=== PATIENT | male | born 1965 | race Caucasian/White ===

== ENCOUNTER 2016-09-05 21:17 | Emergency (ER) | payer MEDICAID ==
[2016-09-05] MEDS ORDERED: LORazepam 2 MG/ML MDV IVPUSH ONE (22:44)
[2016-09-05] MEDS ORDERED: HYDROmorphone 0.5 MG/0.5 ML Syringe IVPUSH ONE (22:44)
[2016-09-05] MEDS ORDERED: Sodium Chloride 0.9% 1,000 ML IV SCH (22:45)
[2016-09-05] MEDS ORDERED: Pantoprazole 40 MG Vial IVPUSH ONE (22:46)
--- NOTE | 2016-09-05 23:23 | EDM.PDOC ---
ED HPI GENERAL MEDICAL PROBLEM - General Chief Complaint: Gastrointestinal Problem Stated Complaint: RECTAL BLEEDING Time Seen by Provider: 09/05/16 22:12 Source of Information: Reports: Patient History Limitations: Reports: No limitations - History of Present Illness INITIAL COMMENTS - FREE TEXT/NARRATIVE: Rectal bleeding; this is a 51-year-old male presents emergency room with concerns or rectal bleeding. He reports at 7 PM this evening he notices pants felt wet, he noted approximately half to one cup of bradyarrhythmia and blood in his pants. He became concerned came to emergency room for evaluation. He reports has had a painful rectal area for the past one and half to 2 weeks has been taking Tylenol #4 for pain control but noticed over the past 24 hours worsening pain and then this episode of rectal bleeding. Past medical history Crohn since 1984 currently taking Imuran. Also multiple abdominal surgeries including a appendix, colonoscopy, colon resection of the small and large bowel, colostomy with revision. Mr. 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 4) Rectal Pain Score (Numeric/FACES): 8 - Related Data Allergies Allergy/AdvReac Type Severity Reaction Status Date / Time morphine Allergy Itching Verified 09/05/16 21:31 Sulfa (Sulfonamide Allergy Vomiting Verified 09/05/16 21:31 Antibiotics) surgical tape Allergy Other Uncoded 09/05/16 21:31 Home Meds: Home Meds Acetaminophen with Codeine [Tylenol with Codeine #3 Tablet] 60 - 325 mg PO Q4HR PRN 10/04/13 [History] Albuterol Sulfate [Proair Hfa] 8.5 gm IH DAILY PRN 06/11/15 [History] traZODone 20 mg PO BEDTIME 06/11/15 [History] Acetaminophen [Tylenol Extra Strength] 2 tab-cap PO ASDIRECTED PRN 06/14/15 [ History] azaTHIOprine [Azathioprine] 50 mg PO DAILY 06/14/15 [History] Citalopram [Celexa] 20 mg PO BEDTIME 09/05/16 [History] Past Medical History HEENT History: Reports: Impaired vision Respiratory History: Reports: Asthma Gastrointestinal History: Reports: Other (see below) Other Gastrointestinal History: chrones Genitourinary History: Reports: Other (see below) Other Genitourinary History: seeing a urologist for urethrostricture Musculoskeletal History: Reports: Arthritis Neurological History: Reports: Brain injury Other Neuro History: 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 bowel surgery Male Surgical History: Reports: None Musculoskeletal Surgical History: Reports: None Dermatological Surgical History: Reports: None Social & Family History - Family History Family Medical History: Noncontributory Respiratory: Reports: Asthma, COPD GI: Reports: None Endocrine/Metabolic: Reports: Diabetes, type II - Tobacco Use Smoking Status *Q: Current Every Day Smoker Years of Tobacco use: 30 Packs/Tins Daily: 1 Used Tobacco, but Quit: No Month Tobacco Last Used: 11 Second Hand Smoke Exposure: Yes - Caffeine Use Caffeine Use: Reports: Coffee, Soda - Alcohol Use Days Per Week of Alcohol Use: 0 - Recreational Drug Use Recreational Drug Use: No - Living Situation & Occupation Living situation: Reports: (Lives in [facility] with , roommate, and dog.) ED ROS GENERAL - Review of Systems Review Of Systems: See Below Constitutional: Reports: other (Abdomen and perineum pain) HEENT: Reports: No symptoms Respiratory: Reports: No Symptoms, Other (Smokes one pack per day not interested in quitting) Cardiovascular: Reports: No symptoms Endocrine: Reports: no symptoms GI/Abdominal: Reports: Abdominal pain, Bloody stool, Stool incontinence, Other ( Reports has 9 stools daily due to Crohn's disease) : Reports: no symptoms Musculoskeletal: Reports: joint swelling, muscle pain Skin: Reports: no symptoms Neurological: Reports: No Symptoms Psychiatric: Reports: No symptoms Hematologic/Lymphatic: Reports: no symptoms Immunologic: Reports: no symptoms ED EXAM, GENERAL - Physical Exam Exam: See Below Exam Limited By: No limitations General Appearance: alert, anxious Ears: normal external exam Nose: normal inspection Head: atraumatic, normocephalic Neck: normal inspection, supple, non-tender, full range of motion Respiratory/Chest: no respiratory distress, lungs clear, normal breath sounds, no accessory muscle use, chest non-tender Cardiovascular: normal peripheral pulses, regular rate, rhythm, no edema, no murmur GI/Abdominal: distended, other (Tenderness noted) (Male) Exam: Other (No Hemorrhoids, difficult to examine due to to severe pain, rectum; pink blood is noted ) Rectal (Males) Exam: Bloody Stool, Heme + stool, Tenderness, Other (Difficult to do digital-rectal exam secondary to extreme pain) Back Exam: normal inspection, full range of motion Extremities: normal inspection, normal range of motion, non-tender Neurological: alert, normal cognition, no motor/sensory deficits Psychiatric: normal affect, normal mood, anxious Skin Exam: Warm, Dry, Intact, Normal color, No rash Lymphatic: no adenopathy Course - Vital Signs Last Recorded V/S: Last Vital Signs Temp 37.7 C 09/05/16 21:28 Pulse 98 09/05/16 21:28 Resp 16 09/05/16 21:28 BP 129/84 09/05/16 21:28 Pulse Ox 97 09/05/16 21:28 - Orders/Labs/Meds Orders: Active Orders 24 hr Category Date Time Status Sodium Chloride 0.9% [Normal Saline] 1,000 ml Med 09/05/16 22:45 Active IV ASDIRECTED Medication Orders Sodium Chloride (Normal Saline) 1,000 mls @ 150 mls/hr IV ASDIRECTED PATTI Last Admin: 09/05/16 23:35 Dose: 150 mls/hr Labs: Laboratory Tests 09/05/16 09/05/16 Range/Units 22:23 22:23 WBC 11.7 H (4.5-11.0) K/uL RBC 4.91 (4.30-5.90) M/uL Hgb 15.1 H (12.0-15.0) g/dL Hct 45.9 (40.0-54.0) % MCV 94 (80-98) fL MCH 31 (27-31) pg MCHC 33 (32-36) % Plt Count 289 (150-400) K/uL Neut % (Auto) 63 (36-66) % Lymph % (Auto) 23 L (24-44) % [place] % (Auto) 13 H (2-6) % Eos % (Auto) 1 L (2-4) % Baso % (Auto) 0 (0-1) % Sodium 146 (140-148) mmol/L Potassium 3.4 L (3.6-5.2) mmol/L Chloride 105 (100-108) mmol/L Carbon Dioxide 31 (21-32) mmol/L Anion Gap 13.4 (5.0-14.0) mmol/L BUN 9 (7-18) mg/dL Creatinine 1.1 (0.8-1.3) mg/dL Est Cr Clr Drug Dosing 79.45 mL/min Estimated GFR (MDRD) > 60 (>60) Glucose 126 H (74-106) mg/dL Calcium 8.3 L (8.5-10.1) mg/dL Meds: Medications Generic Name Dose Route Start Last Admin Trade Name Freq PRN Reason Stop Dose Admin Sodium Chloride 1,000 mls @ 150 mls/hr 09/05/16 22:45 09/05/16 23:35 Normal Saline IV 150 mls/hr ASDIRECTED PATTI Administration Discontinued Medications Generic Name Dose Route Start Last Admin Trade Name Freq PRN Reason Stop Dose Admin Hydromorphone HCl 0.5 mg 09/05/16 22:44 Dilaudid IVPUSH 09/05/16 22:45 ONETIME ONE Lorazepam 1 mg 09/05/16 22:44 09/05/16 23:35 Ativan IVPUSH 09/05/16 22:45 1 mg ONETIME ONE Administration Pantoprazole Sodium 40 mg 09/05/16 22:46 Protonix Iv IVPUSH 09/05/16 22:47 ONETIME ONE - Re-Assessments/Exams Free Text/Narrative Re-Assessment/Exam: 09/05/16 23:31 IV fluids normal saline, IV Dilaudid 0.5, IV Ativan 1 mg, IV protonic 40 mg Labs, hemoglobin stable at 15.1, cbc, cmp, fecal occult stool + Consulted with [facility] , patient is a , will be transferred and admitted to [facility] for further care and treatment. Patient and his are agreeable to plan of care. accepting Departure - Departure Time of Disposition: 23:39 Disposition: DC/Tfer to [facility] 43 Condition: good Clinical Impression: Rectal hemorrhage due to Crohn's disease, Exacerbation of Crohn's disease Referrals: Christiano Vale MD [Primary Care Provider] - Forms: ED Department Discharge Care Plan Goals: Transfer to [facility] for further care and treatment - Problem List & Annotations (1) Exacerbation of Crohn's disease SNOMED Code(s): 30311552 Code(s): K50.90 - CROHN'S DISEASE, UNSPECIFIED, WITHOUT COMPLICATIONS Status: Acute Priority: High Current Visit: Yes Qualifiers: Digestive disease complication type: with rectal bleeding Qualified Code(s) : K50.911 - Crohn's disease, unspecified, with rectal bleeding (2) Rectal hemorrhage due to Crohn's disease SNOMED Code(s): 4226708804359349 Code(s): K50.911 - CROHN'S DISEASE, UNSPECIFIED, WITH RECTAL BLEEDING Status: Acute Priority: High Current Visit: Yes - Problem List Review Problem List Initiated/Reviewed/Updated: Yes - My Orders Last 24 Hours: My Active Orders 09/05/16 22:45 Sodium Chloride 0.9% [Normal Saline] 1,000 ml IV ASDIRECTED - Assessment/Plan Last 24 Hours: My Active Orders 09/05/16 22:45 Sodium Chloride 0.9% [Normal Saline] 1,000 ml IV ASDIRECTED Plan: Transfer to [facility] for further care and treatment
[2016-09-05 23:52] VITALS: BP 153/93
== END 2016-09-06 00:12 ==
LOC: JP.ED 21:17
DX: K50.911 Crohn's disease, unspecified, with rectal bleeding (principal); F17.210 Nicotine dependence, cigarettes, uncomplicated; J45.909 Unspecified asthma, uncomplicated; Z90.89 Acquired absence of other organs; Z79.899 Other long term (current) drug therapy; Z88.2 Allergy status to sulfonamides; Z88.5 Allergy status to narcotic agent; Z91.048 Other nonmedicinal substance allergy status
CPT/HCPCS: 36415; 80048; 82270; 85025; 96374; 96375; 99285; C9113; J1170; J2060; J7040

== ENCOUNTER 2017-09-12 22:33 | Emergency (ER) | payer MEDICAID ==
[2017-09-12 22:52] VITALS: BP 140/98
--- NOTE | 2017-09-12 23:32 | EDM.PDOC ---
ED HPI GENERAL MEDICAL PROBLEM - General Chief Complaint: Lower Extremity Injury/Pain Stated Complaint: POSS BLOOD CLOTS Time Seen by Provider: 09/12/17 23:10 Source of Information: Reports: Patient History Limitations: Reports: No Limitations - History of Present Illness INITIAL COMMENTS - FREE TEXT/NARRATIVE: 52-year-old male who has had 2 erythematous areas on the left leg develop over the past week. The first is over the anterior quiñones which has been there for 5 days, now he has a second spot on the inner aspect of the upper left thigh. The one on the quiñones is enlarging and becoming warm. He has no fevers or chills. They are tender to palpation. Onset: Gradual (Over the past 7 days) Severity: Mild Associated Symptoms: Denies: Fever/Chills, Loss of Appetite, Malaise, Nausea/ Vomiting, Shortness of Breath Left Lower Leg Pain Score (Numeric/FACES): 4 - Related Data Allergies Allergy/AdvReac Type Severity Reaction Status Date / Time morphine Allergy Itching Verified 09/05/16 21:31 Sulfa (Sulfonamide Allergy Vomiting Verified 09/05/16 21:31 Antibiotics) surgical tape Allergy Other Uncoded 09/05/16 21:31 Home Meds: Home Meds Acetaminophen with Codeine [Tylenol with Codeine #3 Tablet] 60 - 325 mg PO Q4HR PRN 10/04/13 [History] Albuterol Sulfate [Proair Hfa] 8.5 gm IH DAILY PRN 06/11/15 [History] traZODone 20 mg PO BEDTIME PRN 06/11/15 [History] Acetaminophen [Tylenol Extra Strength] 2 tab-cap PO ASDIRECTED PRN 06/14/15 [ History] azaTHIOprine [Azathioprine] 50 mg PO DAILY 06/14/15 [History] Citalopram [Celexa] 40 mg PO BEDTIME 09/05/16 [History] Diphenoxylate HCl/Atropine [Lomotil Tablet] 1 each PO BID 09/12/17 [History] InFLIXimab [Remicade] 100 mg IV ASDIRECTED 09/12/17 [History] Past Medical History HEENT History: Reports: Impaired Vision Respiratory History: Reports: Asthma Gastrointestinal History: Reports: Other (See Below) Other Gastrointestinal History: Crohns disease Genitourinary History: Reports: Other (See Below) Other Genitourinary History: erectile dysfunction Musculoskeletal History: Reports: Arthritis Neurological History: Reports: Brain Injury Other Neuro History: 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, according to patient Psychiatric History: Reports: Anxiety Dermatologic History: Reports: Eczema - Infectious Disease History Infectious Disease History: Reports: Hepatitis A Other Infectious Disease History: hepatitis a as a child - Past Surgical History Respiratory Surgical History: Reports: None GI Surgical History: Reports: Colon, Colonoscopy, Hernia Repair/Other, Other ( See Below) Other GI Surgeries/Procedures: Ileocecal resection Musculoskeletal Surgical History: Reports: None Dermatological Surgical History: Reports: None Social & Family History - Family History Family Medical History: Noncontributory Respiratory: Reports: Asthma, COPD GI: Reports: None Endocrine/Metabolic: Reports: Diabetes, type II - Tobacco Use Smoking Status *Q: Current Every Day Smoker Years of Tobacco use: 30 Packs/Tins Daily: 0.5 Used Tobacco, but Quit: No Month/Year Tobacco Last Used: 11 Second Hand Smoke Exposure: Yes - Caffeine Use Caffeine Use: Reports: Coffee, Energy Drinks, Soda - Alcohol Use Days Per Week of Alcohol Use: 0 - Recreational Drug Use Recreational Drug Use: No - Living Situation & Occupation Living situation: Reports: Review of Systems - Review of Systems Review Of Systems: See Below Constitutional: Denies: Fever Respiratory: Denies: Shortness of Breath Cardiovascular: Denies: Chest Pain GI/Abdominal: Reports: Other (Some stool incontinence chronically from his Crohn 's disease) Musculoskeletal: Reports: Other (Having problems with leg cramps for the last several months) Skin: Reports: Rash, Erythema ED EXAM, GENERAL - Physical Exam Exam: See Below Exam Limited By: No Limitations General Appearance: Alert, No Apparent Distress Respiratory/Chest: No Respiratory Distress Extremities: Other (Patient has an isolated erythematous area on the anterior aspect of the left lower leg with surrounding erythema and warmth, also a small 3-4 cm wide area of erythema on the inner aspect of the left thigh) Course - Vital Signs Last Recorded V/S: Last Vital Signs Temp 97.8 F 09/12/17 23:06 Pulse 90 09/12/17 23:06 Resp 16 09/12/17 23:06 BP 140/98 H 09/12/17 23:06 Pulse Ox 98 09/12/17 23:06 - Orders/Labs/Meds Meds: Medications Discontinued Medications Generic Name Dose Route Start Last Admin Trade Name Tania PRN Reason Stop Dose Admin Cephalexin 500 mg 09/12/17 23:45 09/12/17 23:48 Keflex PO 09/12/17 23:46 500 mg ONETIME ONE Administration - Re-Assessments/Exams Free Text/Narrative Re-Assessment/Exam: 09/12/17 23:30 This may be a combination of phlebitis and cellulitis, DVT is very unlikely. He' ll be placed on cephalexin 500 3 times a day for 7 days, warm compresses can be used and he can recheck at any time if he is worsening. Departure - Departure Time of Disposition: 23:42 Disposition: Home, Self-Care 01 Condition: Good Clinical Impression: Superficial thrombophlebitis of left leg Cellulitis Qualifiers: Site of cellulitis: extremity Site of cellulitis of extremity: lower extremity Laterality: left Qualified Code(s): L03.116 - Cellulitis of left lower limb - Discharge Information Instructions: Phlebitis, [id number] Referrals: Christiano Vale MD [Primary Care Provider] - Forms: ED Department Discharge Care Plan Goals: Take antibiotic 3 times a day until gone, warm compresses and elevation of the leg may help. Take aspirin or naproxen for inflammation and recheck in the next 2-3 days if not improving satisfactorily.
[2017-09-12] MEDS ORDERED: Cephalexin 250 MG Cap PO ONE (23:45)
== END 2017-09-12 23:48 | disposition home or self-care (01) ==
LOC: JP.ED 22:33
DX: I80.02 Phlebitis and thrombophlebitis of superficial vessels of left lower extremity (principal); L03.116 Cellulitis of left lower limb; J45.909 Unspecified asthma, uncomplicated; F41.9 Anxiety disorder, unspecified; F17.210 Nicotine dependence, cigarettes, uncomplicated; Z88.5 Allergy status to narcotic agent; Z88.2 Allergy status to sulfonamides; Z91.048 Other nonmedicinal substance allergy status; Z79.899 Other long term (current) drug therapy
CPT/HCPCS: 99283; A9270

== ENCOUNTER 2019-02-06 09:38 | Inpatient (IN) | payer MEDICAID ==
[2019-02-06] MEDS ORDERED: Acetaminophen 500 MG Tab PO ONE (10:30)
[2019-02-06] MEDS ORDERED: Dextrose 5%-Lactated Ringers 1,000 ML IV SCH (10:30)
[2019-02-06] MEDS ORDERED: Scopolamine 1.5 MG Transdermal Patch TOP SCH (10:30)
[2019-02-06] MEDS ORDERED: Celecoxib 200 MG Cap PO ONE (10:30)
[2019-02-06] MEDS ORDERED: Albuterol/Ipratropium 3.0-0.5 MG/3 ML Neb Soln NEB ONE ×2 (10:45→14:58)
[2019-02-06] MEDS ORDERED: ceFAZolin 2 GM in Premix Bag 1 BAG IV ONE (10:45)
[2019-02-06] MEDS ORDERED: Glycopyrrolate 0.2 MG/ML 5 ML MDV ONE (11:50)
[2019-02-06] MEDS ORDERED: Dexamethasone 4 MG/ML SDV ONE (11:50)
[2019-02-06] MEDS ORDERED: Ondansetron 4 MG/2 ML SDV ONE (11:50)
[2019-02-06] MEDS ORDERED: Succinylcholine 200 MG/10 ML MDV ONE (11:50)
[2019-02-06] MEDS ORDERED: fentaNYL 250 MCG/5 ML SDV ONE ×2 (11:50→12:59)
[2019-02-06] MEDS ORDERED: Neostigmine Methylsulfate 1 MG/ML 5 ML Syringe ONE (11:50)
[2019-02-06] MEDS ORDERED: Propofol 200 MG/20 ML SDV ONE (11:50)
[2019-02-06] MEDS ORDERED: Ketamine 500 MG/5 ML MDV IV SCH (12:00)
[2019-02-06] MEDS ORDERED: Ketamine 50 MG in Sodium Chloride 0.9% 49.5 ML IV SCH (12:00)
[2019-02-06] MEDS ORDERED: Meropenem 500 MG SDV ONE (12:19)
[2019-02-06] MEDS ORDERED: Rocuronium 50 MG/5 ML Vial ONE (12:50)
[2019-02-06] MEDS ORDERED: Naloxone 0.4 MG/ML SDV IVPUSH PRN (13:06)
[2019-02-06] MEDS: HYDROmorphone/Normal Saline 15 MG/30 ML PCA IV PRN (13:30)
[2019-02-06] MEDS ORDERED: Lactated Ringers 1,000 ML ONE (13:42)
[2019-02-06] MEDS ORDERED: hydrOXYzine HCl 100 MG/2 ML SDV IM ONE (14:56)
[2019-02-06] MEDS ORDERED: Naloxone 0.4 MG/ML SDV IV PRN (16:04)
[2019-02-06] MEDS ORDERED: hydrOXYzine HCl 100 MG/2 ML SDV IM PRN (16:06)
[2019-02-06] MEDS ORDERED: Ondansetron 4 MG/2 ML SDV IVPUSH PRN (16:06)
[2019-02-06] MEDS ORDERED: Metoclopramide 10 MG/2 ML SDV IVPUSH PRN (16:06)
[2019-02-06] MEDS: Acetaminophen 500 MG Tab PO SCH ×2 (18:14→22:32)
[2019-02-06] MEDS: Pantoprazole 40 MG Vial IVPUSH SCH (18:14)
[2019-02-06] MEDS: Dextrose 5%-Lactated Ringers 1,000 ML IV SCH (18:51)
[2019-02-06] MEDS: ceFAZolin 2 GM in Sodium Chloride 0.9% 50 ML IV SCH (19:32)
[2019-02-06] MEDS: Tamsulosin 0.4 MG Cap.ER PO SCH (20:56)
[2019-02-06] MEDS ORDERED: busPIRone 10 MG Tab PO SCH (21:00)
[2019-02-06] MEDS: Albuterol/Ipratropium 3.0-0.5 MG/3 ML Neb Soln INH SCH (21:06)
[2019-02-07] MEDS: Lactated Ringers 500 ML IV SCH ×2 (00:20→03:10)
[2019-02-07] MEDS: Dextrose 5%-Lactated Ringers 1,000 ML IV SCH ×2 (02:07→16:57)
[2019-02-07] MEDS ORDERED: Lactated Ringers 500 ML IV SCH (03:10)
[2019-02-07] MEDS: ceFAZolin 2 GM in Sodium Chloride 0.9% 50 ML IV SCH ×3 (04:27→19:55)
[2019-02-07] MEDS: Acetaminophen 500 MG Tab PO SCH ×4 (04:28→22:00)
[2019-02-07] MEDS: Albuterol/Ipratropium 3.0-0.5 MG/3 ML Neb Soln INH SCH ×4 (07:15→20:08)
[2019-02-07] MEDS: busPIRone 10 MG Tab PO SCH (08:15)
[2019-02-07] MEDS: Celecoxib 200 MG Cap PO SCH (08:15)
[2019-02-07] MEDS ORDERED: Citalopram 20 MG Tab PO SCH (09:00)
[2019-02-07] MEDS: SCOPOLAMINE PATCH CHECK TOP SCH (09:23)
[2019-02-07] MEDS ORDERED: Dextrose 5%-Lactated Ringers 1,000 ML IV SCH ×2 (09:30→20:00)
[2019-02-07] MEDS: Bisacodyl 5 MG Tab PO SCH ×2 (09:31→20:04)
[2019-02-07] MEDS ORDERED: Furosemide 20 MG/2 ML VIAL IVPUSH ONE (13:13)
[2019-02-07] MEDS ORDERED: Albuterol 0.083% 2.5 MG/3 ML Neb Soln NEB ONE (13:13)
[2019-02-07] MEDS: HYDROmorphone/Normal Saline 15 MG/30 ML PCA IV PRN (14:58)
[2019-02-07] MEDS: Pantoprazole 40 MG Vial IVPUSH SCH (17:01)
[2019-02-07] MEDS: Albuterol/Ipratropium 3.0-0.5 MG/3 ML Neb Soln INH PRN (17:09)
--- NOTE | 2019-02-07 17:54 | PN ---
DATE OF SERVICE: 02/07/2019 SUBJECTIVE: Ramón is postoperative day #1. Vital signs have been stable. His urinary output has been decreased. He received 2 boluses and sips of water since surgery. His urine output was 515. He states his pain is controlled. He has been resting comfortably in bed. REVIEW OF SYSTEMS: Remainder of review of systems negative for any pertinent positives and negatives. OBJECTIVE: GENERAL: Ramón Erazo is a 53-year-old male, in no acute distress. VITAL SIGNS: TPR 98.7, 71, 16, blood pressure 98/67. HEENT: Negative. NECK: Supple. HEART: Regular rate and rhythm. LUNGS: Clear. ABDOMEN: Dressings dry and intact. Abdominal binder is on. EXTREMITIES: Without peripheral edema. ASSESSMENT: Exploratory laparotomy with lysis of adhesions. 1. Repair of incarcerated recurrent incisional hernia with mesh. 2. Repair of incarcerated umbilical hernia with mesh. 3. Excision of peritoneal nodule. 4. Placement of Interceed mesh for recurrent incarcerated incisional umbilical hernia and peritoneal nodule between right lateral abdominal wall and omentum (5.5 cm), and extensive intraabdominal adhesions. Date of surgery 02/06/2019. Surgeon, Denver Gabriel MD. PLAN: 1. Leave Carmichael catheter in for accurate intake and output. 2. Asked regarding removal of the Carmichael catheter pending urinary output. 3. IV decreased to 175 mL/hour until 1999, then decrease to 125 mL. 4. Dulcolax tabs 2 b.i.d. until bowel movement. 5. Senna Plus 2 tabs p.o. at bedtime. 6. Good pulmonary toilet. 7. We will evaluate p.r.n. or in a.m. Dee Conway PA-C /[id number]
[2019-02-07] MEDS: Tamsulosin 0.4 MG Cap.ER PO SCH (20:04)
[2019-02-07] MEDS: Citalopram 20 MG Tab PO SCH (20:05)
[2019-02-08] MEDS: Dextrose 5%-Lactated Ringers 1,000 ML IV SCH (01:30)
[2019-02-08] MEDS: ceFAZolin 2 GM in Sodium Chloride 0.9% 50 ML IV SCH ×2 (04:22→11:13)
[2019-02-08] MEDS: Albuterol/Ipratropium 3.0-0.5 MG/3 ML Neb Soln INH PRN (04:22)
[2019-02-08] MEDS: Acetaminophen 500 MG Tab PO SCH ×3 (04:22→17:14)
[2019-02-08] MEDS: Albuterol/Ipratropium 3.0-0.5 MG/3 ML Neb Soln INH SCH ×4 (07:18→20:14)
[2019-02-08] MEDS: busPIRone 10 MG Tab PO SCH (10:00)
[2019-02-08] MEDS ORDERED: Dextrose 5%-Lactated Ringers 1,000 ML IV SCH (10:00)
[2019-02-08] MEDS: Celecoxib 200 MG Cap PO SCH (10:00)
[2019-02-08] MEDS: Bisacodyl 5 MG Tab PO SCH ×2 (10:00→20:14)
[2019-02-08] MEDS: SCOPOLAMINE PATCH CHECK TOP SCH (10:01)
--- NOTE | 2019-02-08 13:22 | PN ---
DATE OF SERVICE: 02/08/2019 The patient has been afebrile with stable vital signs. Did have some bloody drainage from the incision, but it otherwise looks clean at this point. We will have him shower daily, replacing the Aquacel dressing. Otherwise, urine output is now satisfactory. Back down IV rate. Carmichael catheter will be coming out. continue bowel stimulation. Otherwise, maximize activity. Work with pulmonary toilet. Denver Gabriel MD /[id number]
[2019-02-08] MEDS: Pantoprazole 40 MG Vial IVPUSH SCH (17:14)
[2019-02-08] MEDS ORDERED: Furosemide 40 MG/4 ML VIAL IVPUSH ONE (17:44)
[2019-02-08] MEDS ORDERED: Sodium Chloride 0.9% 1,000 ML IV SCH (18:00)
[2019-02-08] MEDS: Acetaminophen/oxyCODONE 325-5 MG Tab PO PRN (20:14)
[2019-02-08] MEDS: Cyclobenzaprine 10 MG Tab PO PRN (20:14)
[2019-02-08] MEDS: Tamsulosin 0.4 MG Cap.ER PO SCH (20:15)
[2019-02-08] MEDS: Citalopram 20 MG Tab PO SCH (20:15)
[2019-02-09] MEDS: Acetaminophen/oxyCODONE 325-5 MG Tab PO PRN ×4 (01:24→19:15)
[2019-02-09] MEDS: Cyclobenzaprine 10 MG Tab PO PRN ×2 (04:37→19:16)
[2019-02-09] MEDS: Albuterol/Ipratropium 3.0-0.5 MG/3 ML Neb Soln INH SCH ×6 (07:18→21:41)
[2019-02-09] MEDS: Bisacodyl 5 MG Tab PO SCH (08:43)
[2019-02-09] MEDS: busPIRone 10 MG Tab PO SCH (08:43)
[2019-02-09] MEDS: Celecoxib 200 MG Cap PO SCH (08:43)
--- NOTE | 2019-02-09 13:05 | PN ---
DATE OF SERVICE: 02/09/2019 The patient has been afebrile with stable vital signs, still having some mobility issues, and we will work on that one more day prior to discharge. Otherwise, he will switch over to oral pain medication and is moving his bowels. We are going to move him to a regular diet today. Denver Gabriel MD /[id number]
[2019-02-09] MEDS: Tamsulosin 0.4 MG Cap.ER PO SCH (20:55)
[2019-02-09] MEDS: Citalopram 20 MG Tab PO SCH (20:55)
[2019-02-10] MEDS ORDERED: Ondansetron 4 MG Tab.DIS PO PRN (02:02)
[2019-02-10] MEDS: Acetaminophen/oxyCODONE 325-5 MG Tab PO PRN (02:21)
[2019-02-10] MEDS: Albuterol/Ipratropium 3.0-0.5 MG/3 ML Neb Soln INH SCH (06:59)
[2019-02-10] MEDS: Celecoxib 200 MG Cap PO SCH (07:15)
[2019-02-10 07:23] VITALS: BP 122/78; PULSE 71
[2019-02-10] MEDS: busPIRone 10 MG Tab PO SCH (11:15)
--- NOTE | 2019-02-10 12:39 | DISCH ---
ADMISSION DIAGNOSES: Recurrent incisional hernia, Crohn disease, chronic pain syndrome, morbid obesity, essential hypertension, chronic knee pain, tobacco dependence, and dyslipidemia. DISCHARGE DIAGNOSES: Exploratory laparotomy with lysis of adhesions. 1. Repair of incarcerated recurrent incisional hernia with mesh. 2. Repair of incarcerated umbilical hernia with mesh. 3. Excision of peritoneal nodule. 4. Placement of Interceed mesh for recurrent incarcerated incisional umbilical hernia and peritoneal nodule between right lateral abdominal wall and omentum (5.5 cm), and extensive intraabdominal adhesions. Date of surgery 02/06/2019. Surgeon, Denver Gabriel MD. HISTORY: Ramón Erazo is a 53-year-old male with an incarcerated recurrent incisional hernia. After preoperative evaluation and discussion of possible risks and possible complications, he wished to proceed with surgical procedure. HOSPITAL COURSE: Ramón had his surgery on 02/06/2019. He had no operative complications. On postoperative day 1, his Carimchael was left in for decreased urine output secondary to dehydration. He was started on bowel stimulation. On postoperative day 2, vital signs remained stable. He did have some bloody drainage from his incision. Carmichael catheter was discontinued. On postoperative day 3, he needed encouragement to ambulate, he was switched over to oral pain medication, and on postoperative day 4, he was able to be discharged to home. Pain was well managed, activity had improved, and vital signs were stable. PHYSICAL EXAMINATION: GENERAL: Ramón Erazo is a 53-year-old male. VITAL SIGNS: Height is 5 feet 8.9 inches, weight is 263 pounds. TPR is 97.7, 71, 16. Blood pressure 122/78. HEENT: Negative. NECK: Supple. HEART: Regular rate and rhythm. LUNGS: Clear. ABDOMEN: Dressings dry and intact. Aquacel will be removed and abdominal binder is on. EXTREMITIES: Without peripheral edema. DISPOSITION: Discharged to home. CONDITION: Stable and improving. FOLLOWUP: Followup appointment with Dee Conway PA-C, on 02/18/2019 at 9:30 a.m. HOME MEDICATIONS: 1. Percocet 5/325 mg take 1 tab every 6 hours, #42. 2. Zofran ODT 4 mg every 4 hours p.r.n. nausea, #30. He is to continue takin. ProAir 2 puffs every 4 hours p.r.n. shortness of breath. 2. Celexa 20 mg at bedtime. 3. Lomotil 1 oral twice daily for constipation. 4. Lamisil 1% cream 1 applicator twice daily. 5. Triamcinolone cream 1 applicator p.r.n. rash. 6. BuSpar 10 mg oral daily. DIET: Usual diet as tolerated. Drink 8 to 10 glasses of water a day. ACTIVITY: As tolerated. No lifting greater than 10 pounds for 6 weeks. DRIVING: Do not drive for 1 week and while on pain medication. SHOWER/BATHING: May shower. DISCHARGE INSTRUCTIONS: Notify provider if any fever, increased pain, nausea, vomiting. Keep site clean and dry, wear abdominal binder for 6 weeks, and use incentive spirometer 10 times every hour while awake.
--- NOTE | 2019-02-12 13:52 | OR ---
DATE OF PROCEDURE: 02/06/2019 SURGEON: Denver Gabriel MD PREOPERATIVE DIAGNOSIS: Recurrent incisional hernia. POSTOPERATIVE DIAGNOSES: 1. Recurrent incarcerated incisional hernia. 2. Incarcerated umbilical hernia. 3. Peritoneal nodule located between the right lateral abdominal wall and omentum (5.5 cm). 4. Extensive intraabdominal adhesions. OPERATIVE PROCEDURES: Exploratory laparotomy with lysis of extensive adhesions: 1. Repair of incarcerated recurrent incisional hernia with mesh (39252, [id number]). 2. Repair of incarcerated umbilical hernia with mesh (15683). 3. Excision of peritoneal nodule located between omentum and right lateral abdominal wall (31992). 4. Placement of Interceed mesh x2 to limit recurrent adhesion formation between pelvic and abdominal wall and underlying viscera (37146). ANESTHESIA: General. RESOLUTION REP: Dee Conway PA-C. INDICATIONS FOR PROCEDURE: A 53-year-old presenting with recurrent incisional hernia, which appears to be increasingly symptomatic and progressively enlarging. After preoperative evaluation and discussion, he wished to proceed with repair of this. Because of extensive previous abdominal surgeries, an open approach is obviously indicated. Potential risks of procedure including bleeding, infection, injury to underlying viscera, problems with mesh becoming infected, hernias recurring, as well as remote possibility of cardiopulmonary, septic, or hemorrhagic complications leading to were all discussed, and the patient wishes to proceed. DETAILS OF PROCEDURE: The patient was taken to the operating room and placed in a supine position. After general endotracheal anesthesia was induced, a Carmichael catheter was inserted, and the abdomen prepped and draped. Previous portion of the midline skin incision was then removed and the incision continued down through the full-thickness abdominal wall. Eventually, the patient was entered into the peritoneal cavity layer. There were quite dense adhesions between the transverse colon, small bowel, omentum, and the incisional hernia sac. These were gradually dissected free. The patient noted to have a separate umbilical hernia, which likewise had some incarcerated omentum within it, which was also then excised away from the hernia sac and placed back in the abdomen. During the course of dissection, a firm nodular lesion was located between the omentum and the right lateral abdominal wall. This was excised for histologic confirmation and measured 5.5 cm in maximal dimension. Once the abdominal wall was cleared sufficiently to allow the mesh placement, a Ventralight ST mesh was selected. This measured 19 x 24 in terms of its dimensions with an oval configuration. At roughly 5 cm intervals around its circumference on the polypropylene side, 2-0 Vicryl sutures were placed. Stab wounds were placed in the abdominal wall where the sutures would be pulled up and mesh soaked in antibiotic-containing saline solution. Mesh was then placed into the peritoneal cavity on its upper half, where the sutures had been pulled up and through the abdominal wall, lifting the remaining portion of the mesh. Two Interceed meshes were placed between the pelvic and abdominal wall and the pelvic wall and the area of the hernia formation. The remaining sutures were then pulled up, affixing the mesh in place. The mesh was then further affixed with titanium tacking screws to its underlying shelf and the anterior abdominal wall. At this point, no further problems noted. The midline fascia was approximated with #2 Vicryl stitch, and the subcutaneous tissue approximated with 2 layers of 3-0 and 4-0 Vicryl stitch deep and dusty for the skin. Dressing was applied. The patient was taken to the recovery room in satisfactory condition. There were no evident complications. Physician assistant plant control operator, Dee Conway, played an essential role in assisting in this case, helping to position the patient, retract structures as needed, as well as suturing and cutting sutures when indicated. Her presence improved patient safety and decreased the operative time. Denver Gabriel MD /[id number]
== END 2019-02-10 09:10 | disposition home or self-care (01) | DRG 337 ==
LOC: JP.SDS 09:38 → JP.MS 09:38 → EDSTATUS 13:00 → JP.MS 14:00
PROVIDERS: ADMIT Surgery; ATTEND Surgery
PROC: 0WUF0JZ Supplement Abdominal Wall with Synthetic Substitute, Open Approach (ICD-10-PCS; principal; 2019-02-06)
PROC: 0DNU0ZZ Release Omentum, Open Approach (ICD-10-PCS; 2019-02-06)
PROC: 0DNL0ZZ Release Transverse Colon, Open Approach (ICD-10-PCS; 2019-02-06)
PROC: 0DN80ZZ Release Small Intestine, Open Approach (ICD-10-PCS; 2019-02-06)
PROC: 0DBW0ZZ Excision of Peritoneum, Open Approach (ICD-10-PCS; 2019-02-06)
PROC: 3E0M05Z Introduction of Adhesion Barrier into Peritoneal Cavity, Open Approach (ICD-10-PCS; 2019-02-06)
DX: K42.0 Umbilical hernia with obstruction, without gangrene (principal); K43.0 Incisional hernia with obstruction, without gangrene; K66.0 Peritoneal adhesions (postprocedural) (postinfection); E86.0 Dehydration; I10 Essential (primary) hypertension; M25.562 Pain in left knee; E66.01 Morbid (severe) obesity due to excess calories; E78.5 Hyperlipidemia, unspecified; K66.8 Other specified disorders of peritoneum; M25.511 Pain in right shoulder; G47.00 Insomnia, unspecified; G89.4 Chronic pain syndrome; F17.210 Nicotine dependence, cigarettes, uncomplicated; Z79.899 Other long term (current) drug therapy; Z88.2 Allergy status to sulfonamides; Z91.09 Other allergy status, other than to drugs and biological substances; Z88.5 Allergy status to narcotic agent; Z71.6 Tobacco abuse counseling; Z68.39 Body mass index [BMI] 39.0-39.9, adult
CPT/HCPCS: 88302; 88304; 94640; 94762; A9270-GY; C1713; C1781; C9113; J0171; J0330; J0690; J1100; J1170; J1940; J2020; J2185; J2405; J2704; J2710; J2795; J3010; J3410; J3490; J7042; J7050; J7120; J7620-GY

== ENCOUNTER 2020-02-07 12:56 | Emergency (ER) | payer MEDICAID ==
[2020-02-07 13:26] VITALS: BP 141/87; PULSE 94
--- NOTE | 2020-02-07 14:14 | EDM.PDOC ---
ED HPI GENERAL MEDICAL PROBLEM - General Chief Complaint: Lower Extremity Injury/Pain Stated Complaint: LT FOOT INFECTED Time Seen by Provider: 02/07/20 13:40 Source of Information: Reports: Patient History Limitations: Reports: No Limitations - History of Present Illness INITIAL COMMENTS - FREE TEXT/NARRATIVE: 54-year-old male in with a variety of complaints, the main one is pain on the bottom of his left foot. He had a foreign body poke into his foot several weeks ago, since that time has had increasing inflammation and pain, thickening of the skin, and pain with weightbearing. He is also been getting a lot of intermittent muscle cramps, and worsening right shoulder pain from a spur. No fevers or chills, no shortness of breath. Onset: Gradual (The foot pain is been gradually worsening over the past 2 weeks) Location: Reports: Upper Extremity, Left Associated Symptoms: Denies: Chest Pain, Cough, Shortness of Breath Left Foot Pain Score (Numeric/FACES): 8 - Related Data Allergies Allergy/AdvReac Type Severity Reaction Status Date / Time morphine Allergy Itching Verified 02/07/20 13:36 Sulfa (Sulfonamide Allergy Vomiting Verified 02/07/20 13:36 Antibiotics) surgical tape Allergy Other Uncoded 02/07/20 13:36 Home Meds: Home Meds Albuterol Sulfate [Proair Hfa] 2 puff IH DAILY PRN 06/11/15 [History] Diphenoxylate HCl/Atropine [Lomotil] 1 each PO BID 09/12/17 [History] Citalopram Hydrobromide [Celexa] 20 mg PO BEDTIME 02/04/19 [History] Terbinafine [LamISIL AT 1% Crm] 1 applic TOP BID 02/04/19 [History] Triamcinolone Acetonide [Kenalog 0.1% Crm] 1 applic TOP ASDIRECTED PRN 02/04/19 [History] busPIRone [Buspar] 10 mg PO DAILY 02/04/19 [History] Ondansetron [Zofran ODT] 4 mg PO Q4H PRN #30 tab.dis 02/10/19 [Rx] Past Medical History HEENT History: Reports: Impaired Vision Respiratory History: Reports: Asthma Gastrointestinal History: Reports: Hemorrhoids, Other (See Below) Other Gastrointestinal History: Crohns disease Genitourinary History: Reports: Other (See Below) Other Genitourinary History: erectile dysfunction Musculoskeletal History: Reports: Arthritis, Other (See Below) Other Musculoskeletal History: chronic pain syndrome, knee pain and injuries. 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, according to patient Psychiatric History: Reports: Anxiety, Depression Endocrine/Metabolic History: Reports: Obesity/BMI 30+ Dermatologic History: Reports: Eczema - Infectious Disease History Infectious Disease History: Reports: Extended Spectrum Beta-Lactamase (ESBL) Other Infectious Disease History: hepatitis a as a child - Past Surgical History Head Surgeries/Procedures: Reports: None HEENT Surgical History: Reports: Adenoidectomy, Tonsillectomy Respiratory Surgical History: Reports: None GI Surgical History: Reports: Appendectomy, Colon, Colonoscopy, EGD, Hernia, Abdominal, Hernia Repair/Other, Small Bowel, Other (See Below) Other GI Surgeries/Procedures: Ileocecal resection,. mesh removal (total of 4 surgeries beginning with an abscess in the mesh). Male Surgical History: Reports: Cystectomy Neurological Surgical History: Reports: None Musculoskeletal Surgical History: Reports: Shoulder Surgery Social & Family History - Family History Family Medical History: Noncontributory Respiratory: Reports: Asthma, COPD GI: Reports: None Endocrine/Metabolic: Reports: Diabetes, type II - Tobacco Use Smoking Status *Q: Current Every Day Smoker Years of Tobacco use: 40 Packs/Tins Daily: 0.5 - Caffeine Use Caffeine Use: Reports: Coffee, Energy Drinks, Soda - Recreational Drug Use Recreational Drug Use: No - Living Situation & Occupation Living situation: Reports: Review of Systems - Review of Systems Review Of Systems: See Below Constitutional: Denies: Fever Respiratory: Denies: Shortness of Breath Cardiovascular: Denies: Chest Pain Musculoskeletal: Reports: Other (Significant right shoulder pain, especially with abduction and rotation) Skin: Reports: Other (Painful redness and thickening of the skin underneath the distal aspect of the left sole at the base of the fourth toe) ED EXAM, GENERAL - Physical Exam Exam: See Below Exam Limited By: No Limitations General Appearance: Alert, No Apparent Distress Head: Atraumatic Respiratory/Chest: Lungs Clear Extremities: Other (Tender inflamed area on the sole of the left foot laterally under the fourth toe, some callus formation and erythema. Also tender over the anterior aspect of the right shoulder pain with abduction) Course - Vital Signs Last Recorded V/S: Last Vital Signs Temp 98.6 F 02/07/20 13:32 Pulse 94 02/07/20 13:32 Resp 18 02/07/20 13:32 BP 141/87 H 02/07/20 13:32 Pulse Ox 99 02/07/20 13:32 - Re-Assessments/Exams Free Text/Narrative Re-Assessment/Exam: 02/07/20 14:12 Patient will be placed on a course of cephalexin, but was encouraged to use a pumice stone or blade to slowly shave off the hardened area of the callus on his foot. He was given 6 hydrocodone for intermittent shoulder pain when he is trying to rest, and will recheck with podiatry and orthopedics if not improving satisfactorily. Departure - Departure Time of Disposition: 14:27 Disposition: Home, Self-Care 01 Clinical Impression: Cellulitis of left foot Right shoulder pain Qualifiers: Chronicity: chronic Qualified Code(s): M25.511 - Pain in right shoulder - Discharge Information Instructions: Cellulitis, Adult, [id number] Referrals: PCP,None [Primary Care Provider] - Forms: ED Department Discharge Care Plan Goals: Take antibiotic as prescribed, try to reduce the thickness of the reactive callus on your foot with a pumice stone or blade and increase activity as tolerated. Use pain medicines sparingly for shoulder pain and increase activity as tolerated. Recheck at the clinic if not improving satisfactorily. Sepsis Event Note (ED) - Evaluation Sepsis Screening Result: No Definite Risk - Focused Exam Vital Signs: Vital Signs Temp Pulse Resp BP Pulse Ox 02/07/20 13:32 98.6 F 94 18 141/87 H 99 02/07/20 13:25 98.6 F 94 18 141/87 H 99
== END 2020-02-07 14:20 | disposition home or self-care (01) ==
LOC: JP.ED 12:56
DX: L03.116 Cellulitis of left lower limb (principal); M25.511 Pain in right shoulder; J45.909 Unspecified asthma, uncomplicated; E66.9 Obesity, unspecified; F41.9 Anxiety disorder, unspecified; F32.9 Major depressive disorder, single episode, unspecified; F17.210 Nicotine dependence, cigarettes, uncomplicated; Z88.5 Allergy status to narcotic agent; Z88.2 Allergy status to sulfonamides; Z91.09 Other allergy status, other than to drugs and biological substances; Z90.49 Acquired absence of other specified parts of digestive tract; Z79.899 Other long term (current) drug therapy
CPT/HCPCS: 99283

== ENCOUNTER 2020-08-06 16:40 | Emergency (ER) | payer MEDICAID, OTHER ==
[2020-08-06 17:01] VITALS: BP 145/88; PULSE 77
[2020-08-06] MEDS ORDERED: Acetaminophen 325 MG Tab PO PRN (17:25)
[2020-08-06] MEDS ORDERED: Ketorolac 60 MG/2 ML SDV IM ONE (17:25)
[2020-08-06] MEDS ORDERED: Albuterol/Ipratropium 4 GM Inhalation Spray INH STA (17:26)
--- NOTE | 2020-08-06 17:28 | EDM.PDOC ---
ED HPI GENERAL MEDICAL PROBLEM - General Chief Complaint: Respiratory Problem Stated Complaint: COVID SYMPTOMS Time Seen by Provider: 08/06/20 17:17 Source of Information: Reports: Patient, RN Notes Reviewed History Limitations: Reports: No Limitations - History of Present Illness INITIAL COMMENTS - FREE TEXT/NARRATIVE: 55-year-old gentleman presents emergency department day complaint of cough no sputum production states he been feeling short of breath wheezing body aches has been getting worse over the last couple days he is not sure of any positive exposures to Covid. 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 and there is a potential for exposure, no fever Generalized Pain Score (Numeric/FACES): 7 - Related Data Allergies Allergy/AdvReac Type Severity Reaction Status Date / Time morphine Allergy Itching Verified 02/07/20 13:36 Sulfa (Sulfonamide Allergy Vomiting Verified 02/07/20 13:36 Antibiotics) surgical tape Allergy Other Uncoded 02/07/20 13:36 Home Meds: Home Meds Albuterol Sulfate [Proair Hfa] 2 puff IH DAILY PRN 06/11/15 [History] Diphenoxylate HCl/Atropine [Lomotil] 1 each PO BID 09/12/17 [History] Citalopram Hydrobromide [Celexa] 20 mg PO BEDTIME 02/04/19 [History] Terbinafine [LamISIL AT 1% Crm] 1 applic TOP BID 02/04/19 [History] Triamcinolone Acetonide [Kenalog 0.1% Crm] 1 applic TOP ASDIRECTED PRN 02/04/19 [History] busPIRone [Buspar] 10 mg PO DAILY 02/04/19 [History] Acetaminophen [Tylenol] 500 mg PO QID PRN 08/06/20 [History] Albuterol/Ipratropium [DuoNeb 3.0-0.5 MG/3 ML] 3 ml INH QID 08/06/20 [History] Aspirin 81 mg PO DAILY 08/06/20 [History] Naproxen 500 mg PO TID PRN 08/06/20 [History] Ranitidine [Zantac] 75 mg PO DAILY 08/06/20 [History] Past Medical History HEENT History: Reports: Impaired Vision Respiratory History: Reports: Asthma Gastrointestinal History: Reports: Hemorrhoids, Other (See Below) Other Gastrointestinal History: Crohns disease Genitourinary History: Reports: Other (See Below) Other Genitourinary History: erectile dysfunction Musculoskeletal History: Reports: Arthritis, Other (See Below) Other Musculoskeletal History: chronic pain syndrome, knee pain and injuries. 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, according to patient Psychiatric History: Reports: Anxiety, Depression Endocrine/Metabolic History: Reports: Obesity/BMI 30+ Dermatologic History: Reports: Eczema - Infectious Disease History Infectious Disease History: Reports: Extended Spectrum Beta-Lactamase (ESBL) Other Infectious Disease History: hepatitis a as a child - Past Surgical History Head Surgeries/Procedures: Reports: None HEENT Surgical History: Reports: Adenoidectomy, Tonsillectomy Respiratory Surgical History: Reports: None GI Surgical History: Reports: Appendectomy, Colon, Colonoscopy, EGD, Hernia, Abdominal, Hernia Repair/Other, Small Bowel, Other (See Below) Other GI Surgeries/Procedures: Ileocecal resection,. mesh removal (total of 4 surgeries beginning with an abscess in the mesh). Male Surgical History: Reports: Cystectomy Endocrine Surgical History: Reports: None Neurological Surgical History: Reports: None Musculoskeletal Surgical History: Reports: Shoulder Surgery Dermatological Surgical History: Reports: None Social & Family History - Family History Family Medical History: No Pertinent Family History Respiratory: Reports: Asthma, COPD GI: Reports: None Endocrine/Metabolic: Reports: Diabetes, type II - Tobacco Use Tobacco Use Status *Q: Current Every Day Tobacco User Years of Tobacco use: 40 Packs/Tins Daily: 0.5 - Caffeine Use Caffeine Use: Reports: Coffee, Soda, Tea - Recreational Drug Use Recreational Drug Use: No - Living Situation & Occupation Living situation: Reports: ED ROS GENERAL - Review of Systems Review Of Systems: See Below Constitutional: Reports: Fatigue. Denies: Fever HEENT: Reports: No Symptoms Respiratory: Reports: Shortness of Breath, Wheezing, Cough. Denies: Sputum Cardiovascular: Reports: Dyspnea on Exertion GI/Abdominal: Reports: No Symptoms Musculoskeletal: Reports: Muscle Pain Skin: Reports: No Symptoms ED EXAM, GENERAL - Physical Exam Exam: See Below Exam Limited By: No Limitations General Appearance: Alert, WD/WN, No Apparent Distress Neck: Normal Inspection, Supple, Non-Tender, Full Range of Motion Respiratory/Chest: No Respiratory Distress, No Accessory Muscle Use, Chest Non- Tender, Wheezing Cardiovascular: Regular Rate, Rhythm, No Murmur GI/Abdominal: Soft, Non-Tender Back Exam: Normal Inspection, Full Range of Motion. No: CVA Tenderness (R), CVA Tenderness (L) Extremities: No Pedal Edema Course - Vital Signs Last Recorded V/S: Last Vital Signs Temp 97.6 F 08/06/20 17:00 Pulse 77 08/06/20 17:00 Resp 18 08/06/20 17:00 BP 145/88 H 08/06/20 17:00 Pulse Ox 95 08/06/20 17:00 - Orders/Labs/Meds Orders: Active Orders 24 hr Category Date Time Status RT Post Treatment Assessment [RC] Click to Edit Care 08/06/20 17:26 Active Chest 1V Frontal [CR] Stat Exams 08/06/20 17:25 Taken Acetaminophen [TylenoL] Med 08/06/20 17:25 Active 650 mg PO Q4H PRN Isolation [COMM] Stat Oth 08/06/20 17:25 Ordered Medication Orders Acetaminophen (Acetaminophen 325 Mg Tab) 650 mg PO Q4H PRN PRN Reason: Fever Greater Than 101 Labs: Laboratory Tests 08/06/20 08/06/20 08/06/20 Range/Units 17:26 17:45 17:45 WBC 15.1 H (4.5-11.0) K/uL RBC 5.17 (4.30-5.90) M/uL Hgb 15.9 H D (12.0-15.0) g/dL Hct 49.4 (40.0-54.0) % MCV 96 (80-98) fL MCH 31 (27-31) pg MCHC 32 (32-36) % Plt Count 256 (150-400) K/uL Neut % (Auto) 76 H (36-66) % Lymph % (Auto) 14 L (24-44) % [place] % (Auto) 9 H (2-6) % Eos % (Auto) 1 L (2-4) % Baso % (Auto) 0 (0-1) % Sodium 140 (140-148) mmol/L Potassium 4.3 (3.6-5.2) mmol/L Chloride 100 (100-108) mmol/L Carbon Dioxide 30 (21-32) mmol/L Anion Gap 9.7 (5.0-14.0) mmol/L BUN 8 (7-18) mg/dL Creatinine 1.5 H (0.8-1.3) mg/dL Est Cr Clr Drug Dosing 55.64 mL/min Estimated GFR (MDRD) 49 L (>60) Glucose 117 H (74-106) mg/dL Lactic Acid (0.4-2.0) mmol/L Calcium 9.2 (8.5-10.1) mg/dL Total Bilirubin 1.0 D (0.2-1.0) mg/dL Direct Bilirubin 0.31 H (0.0-0.2) mg/dL Indirect Bilirubin 0.69 AST 25 (15-37) U/L ALT 45 (12-78) U/L Alkaline Phosphatase 87 (46-116) U/L C-Reactive Protein 3.77 H (0.0-0.3) mg/dL Total Protein 7.2 (6.4-8.2) g/dL Albumin 3.7 (3.4-5.0) g/dL Globulin 3.5 (2.3-3.5) g/dL Albumin/Globulin Ratio 1.1 L (1.2-2.2) Procalcitonin ng/mL Influenza Type A RNA Negative (NEGATIVE) RSV RNA (INAAT) Negative (NEGATIVE) Influenza Type B RNA Negative (NEGATIVE) SARS-CoV-2 RNA (BRIJESH) Negative (NEGATIVE) 08/06/20 08/06/20 Range/Units 17:45 17:45 WBC (4.5-11.0) K/uL RBC (4.30-5.90) M/uL Hgb (12.0-15.0) g/dL Hct (40.0-54.0) % MCV (80-98) fL MCH (27-31) pg MCHC (32-36) % Plt Count (150-400) K/uL Neut % (Auto) (36-66) % Lymph % (Auto) (24-44) % [place] % (Auto) (2-6) % Eos % (Auto) (2-4) % Baso % (Auto) (0-1) % Sodium (140-148) mmol/L Potassium (3.6-5.2) mmol/L Chloride (100-108) mmol/L Carbon Dioxide (21-32) mmol/L Anion Gap (5.0-14.0) mmol/L BUN (7-18) mg/dL Creatinine (0.8-1.3) mg/dL Est Cr Clr Drug Dosing mL/min Estimated GFR (MDRD) (>60) Glucose (74-106) mg/dL Lactic Acid 1.9 (0.4-2.0) mmol/L Calcium (8.5-10.1) mg/dL Total Bilirubin (0.2-1.0) mg/dL Direct Bilirubin (0.0-0.2) mg/dL Indirect Bilirubin AST (15-37) U/L ALT (12-78) U/L Alkaline Phosphatase (46-116) U/L C-Reactive Protein (0.0-0.3) mg/dL Total Protein (6.4-8.2) g/dL Albumin (3.4-5.0) g/dL Globulin (2.3-3.5) g/dL Albumin/Globulin Ratio (1.2-2.2) Procalcitonin 0.07 ng/mL Influenza Type A RNA (NEGATIVE) RSV RNA (INAAT) (NEGATIVE) Influenza Type B RNA (NEGATIVE) SARS-CoV-2 RNA (BRIJESH) (NEGATIVE) Meds: Medications Generic Name Dose Route Start Last Admin Trade Name Freq PRN Reason Stop Dose Admin Acetaminophen 650 mg 08/06/20 17:25 Acetaminophen 325 Mg Tab PO Q4H PRN Fever Greater Than 101 Discontinued Medications Generic Name Dose Route Start Last Admin Trade Name Freq PRN Reason Stop Dose Admin Albuterol/Ipratropium 2 gm 08/06/20 17:26 08/06/20 17:46 Albuterol/Ipratropium 4 Gm Inhalation Freedom INH 08/06/20 17:27 2 gm NOW STA Administration Ketorolac Tromethamine 60 mg 08/06/20 17:25 08/06/20 17:44 Ketorolac 60 Mg/2 Ml Sdv IM 08/06/20 17:26 60 mg ONETIME ONE Administration Departure - Departure Time of Disposition: 18:59 Disposition: Home, Self-Care 01 Condition: Fair Clinical Impression: Acute bronchiolitis Qualifiers: Bronchiolitis organism: unspecified organism Qualified Code(s): J21.9 - Acute bronchiolitis, unspecified - Discharge Information Instructions: Upper Respiratory Infection, Adult, [id number] Referrals: PCP,None [Primary Care Provider] - Forms: ED Department Discharge Additional Instructions: Take full course of antibiotics, continue to use your inhaler as needed for shortness of breath, use anti-inflammatory such as Motrin or Tylenol as needed for body aches please followup with your primary care provider in 3-5 days if not better, please call return to the emergency department with worsening of symptoms., Sepsis Event Note (ED) - Evaluation Sepsis Screening Result: No Definite Risk - Focused Exam Vital Signs: Vital Signs Temp Pulse Resp BP Pulse Ox 08/06/20 17:00 97.6 F 77 18 145/88 H 95 - My Orders Last 24 Hours: My Active Orders 08/06/20 17:25 Chest 1V Frontal [CR] Stat Acetaminophen [TylenoL] 650 mg PO Q4H PRN Isolation [COMM] Stat 08/06/20 17:26 RT Post Treatment Assessment [RC] Click to Edit - Assessment/Plan Last 24 Hours: My Active Orders 08/06/20 17:25 Chest 1V Frontal [CR] Stat Acetaminophen [TylenoL] 650 mg PO Q4H PRN Isolation [COMM] Stat 08/06/20 17:26 RT Post Treatment Assessment [RC] Click to Edit Plan: Assessment Acuity = acute Site and laterality = bronchitis complicating gentleman history of tobacco use and dependence Etiology = suspicious for bacterial cause Manifestations = dyspnea Location of injury = Home Lab values = WBC elevated 15.1 consistent with leukocytosis, creatinine elevated 1.5 consistent with chronic renal failure stage G3 B CRP elevated 3.77 procalcitonin was 0.07 Covid was negative chest x-ray I did review films myself I cannot appreciate any acute process, the official read from radiology is pending Plan Elected to treat empirically doxycycline 100 mg p.o. twice daily x7 days anti- inflammatories for the body aches follow-up primary care 3 to 5 days if not better This note was dictated using [employer] voice recognition software please call with any questions on syntax or grammar.
[2020-08-06 18:53] LABS: CORONAVIRUS COVID-19 NAA NEGATIVE (NEGATIVE)
--- NOTE | 2020-08-09 09:30 | CR ---
CHEST: Portable 08/06/2020 at 6:15 PM CLINICAL HISTORY:Respiratory failure COMPARISON:2014 FINDINGS: Heart is mildly enlarged. Bony vascularity is normal. There is some mild generalized interstitial prominence. This may be exaggerated by patient's body habitus. There are atherosclerotic changes in the aorta. IMPRESSION: Mild cardiomegaly Mild generalized interstitial prominence may be chronic If clinical symptomatology persists or worsens repeat examination recommended
== END 2020-08-06 19:14 | disposition home or self-care (01) ==
LOC: JP.ED 16:40
DX: J21.9 Acute bronchiolitis, unspecified (principal); J45.909 Unspecified asthma, uncomplicated; M19.90 Unspecified osteoarthritis, unspecified site; E66.9 Obesity, unspecified; Z68.42 Body mass index [BMI] 45.0-49.9, adult; Z88.5 Allergy status to narcotic agent; Z91.048 Other nonmedicinal substance allergy status; Z79.82 Long term (current) use of aspirin; Z88.2 Allergy status to sulfonamides; Z72.0 Tobacco use; Z20.822 Contact with and (suspected) exposure to COVID-19; Z79.899 Other long term (current) drug therapy
CPT/HCPCS: 0241U; 36415; 71045; 71045-26; 80048; 80076; 83605; 84145; 85025; 86140; 94640; 96372; 99284; 99285-25; A9270-GY; J1885

== ENCOUNTER 2020-08-21 15:10 | Emergency (ER) | payer MEDICAID, OTHER ==
[2020-08-21 15:33] VITALS: BP 141/87; PULSE 87
[2020-08-21] MEDS ORDERED: Sodium Chloride 0.9% 10 ML Syringe FLUSH PRN (16:27)
[2020-08-21] MEDS ORDERED: Albuterol/Ipratropium 3.0-0.5 MG/3 ML Neb Soln NEB ONE (16:29)
--- NOTE | 2020-08-21 17:06 | EDM.PDOC ---
ED HPI GENERAL MEDICAL PROBLEM - General Chief Complaint: Respiratory Problem Stated Complaint: RESPIRATORY INFECTION Time Seen by Provider: 08/21/20 16:04 Source of Information: Reports: Patient History Limitations: Reports: No Limitations - History of Present Illness INITIAL COMMENTS - FREE TEXT/NARRATIVE: Patient presents to the ER today due to continued SOB/difficulty breathing; he states he just can't seem to catch his breath. He states he was seen a couple weeks ago in the ER by Dr Officer, treated with doxycycline x 10 days & albuterol inhaler. He reports testing negative at that time for COVID. He states he took several days off work and thought he was starting to feel better, went back to work approx 1 week ago this past Sunday--noted some increased fatigue/tired but that slowly improved. Then on he states he started having increasing cough/shortness of breath again. States he has been unable to sleep well, can't lay down flat or back in his recliner due to sensation getting worse. He states he has to sit-upright/lean forward. Denies any other associated symptoms of concern PMH--chron's dz, COPD, obesity, chronic pain syndrome, HTN; ? depression or anxiety based on medication list Meds--albuterol inhaler, duonebuliser, ASA, citalopram, buspar, tylenol, naproxen, zantac, lomotil Allergies--morphine, sulfa, fentanyl PCM--[facility] Tob--decreasing, now <1/2 ppd EtOH--occassional Drugs--denies He has not recieved the COVID vaccine and does not report having had COVID infection Onset: Other (ongoing issue that seemed to improve but then he states got worse again) - Related Data Allergies Allergy/AdvReac Type Severity Reaction Status Date / Time morphine Allergy Itching Verified 02/07/20 13:36 Sulfa (Sulfonamide Allergy Vomiting Verified 02/07/20 13:36 Antibiotics) surgical tape Allergy Other Uncoded 02/07/20 13:36 Home Meds: Home Meds Albuterol Sulfate [Proair Hfa] 2 puff IH DAILY PRN 06/11/15 [History] Diphenoxylate HCl/Atropine [Lomotil] 1 each PO BID 09/12/17 [History] Citalopram Hydrobromide [Celexa] 20 mg PO BEDTIME 02/04/19 [History] Terbinafine [LamISIL AT 1% Crm] 1 applic TOP BID 02/04/19 [History] Triamcinolone Acetonide [Kenalog 0.1% Crm] 1 applic TOP ASDIRECTED PRN 02/04/19 [History] busPIRone [Buspar] 10 mg PO DAILY 02/04/19 [History] Acetaminophen [Tylenol] 500 mg PO QID PRN 08/06/20 [History] Albuterol/Ipratropium [DuoNeb 3.0-0.5 MG/3 ML] 3 ml INH QID 08/06/20 [History] Aspirin 81 mg PO DAILY 08/06/20 [History] Naproxen 500 mg PO TID PRN 08/06/20 [History] Ranitidine [Zantac] 75 mg PO DAILY 08/06/20 [History] Past Medical History HEENT History: Reports: Impaired Vision Respiratory History: Reports: Asthma Gastrointestinal History: Reports: Hemorrhoids, Other (See Below) Other Gastrointestinal History: Crohns disease Genitourinary History: Reports: Other (See Below) Other Genitourinary History: erectile dysfunction Musculoskeletal History: Reports: Arthritis, Other (See Below) Other Musculoskeletal History: chronic pain syndrome, knee pain and injuries. 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, according to patient Psychiatric History: Reports: Anxiety, Depression Endocrine/Metabolic History: Reports: Obesity/BMI 30+ Dermatologic History: Reports: Eczema - Infectious Disease History Infectious Disease History: Reports: Extended Spectrum Beta-Lactamase (ESBL) Other Infectious Disease History: hepatitis a as a child - Past Surgical History Head Surgeries/Procedures: Reports: None HEENT Surgical History: Reports: Adenoidectomy, Tonsillectomy Respiratory Surgical History: Reports: None GI Surgical History: Reports: Appendectomy, Colon, Colonoscopy, EGD, Hernia, Abdominal, Hernia Repair/Other, Small Bowel, Other (See Below) Other GI Surgeries/Procedures: Ileocecal resection,. mesh removal (total of 4 surgeries beginning with an abscess in the mesh). Male Surgical History: Reports: Cystectomy Endocrine Surgical History: Reports: None Neurological Surgical History: Reports: None Musculoskeletal Surgical History: Reports: Shoulder Surgery Dermatological Surgical History: Reports: None Social & Family History - Family History Family Medical History: No Pertinent Family History Respiratory: Reports: Asthma, COPD GI: Reports: None Endocrine/Metabolic: Reports: Diabetes, type II - Tobacco Use Tobacco Use Status *Q: Current Every Day Tobacco User Years of Tobacco use: 30 Packs/Tins Daily: 0.5 - Caffeine Use Caffeine Use: Reports: Coffee, Soda - Recreational Drug Use Recreational Drug Use: No - Living Situation & Occupation Living situation: Reports: ED ROS GENERAL - Review of Systems Review Of Systems: See Below Constitutional: Reports: No Symptoms HEENT: Reports: No Symptoms Respiratory: Reports: Shortness of Breath, Cough Cardiovascular: Reports: No Symptoms Endocrine: Reports: No Symptoms GI/Abdominal: Reports: No Symptoms : Reports: No Symptoms Musculoskeletal: Reports: No Symptoms Skin: Reports: No Symptoms Neurological: Reports: No Symptoms Psychiatric: Reports: No Symptoms Hematologic/Lymphatic: Reports: No Symptoms Immunologic: Reports: No Symptoms ED EXAM, GENERAL - Physical Exam Exam: See Below Exam Limited By: No Limitations General Appearance: Alert, WD/WN, No Apparent Distress Eye Exam: Bilateral Eye: EOMI, Normal Inspection, PERRL Ears: Normal External Exam Nose: Normal Inspection Throat/Mouth: Normal Inspection, Normal Oropharynx, Normal Voice, No Airway Compromise Head: Atraumatic, Normocephalic Neck: Normal Inspection, Supple, Non-Tender, Full Range of Motion Respiratory/Chest: No Respiratory Distress, No Accessory Muscle Use, Other (has noted coughing episodes with deep breathing with some end expiratory wheezing) Cardiovascular: Regular Rate, Rhythm, No Murmur. No: No Edema (2+ pitting edema of lower extremities bilaterally) Peripheral Pulses: 2+: Radial (L), Radial (R) GI/Abdominal: Normal Bowel Sounds, Soft, Non-Tender (morbid obesity/abdomial obesity limits palpatory exam) (Male) Exam: Deferred Rectal (Males) Exam: Deferred Back Exam: Normal Inspection, Full Range of Motion Extremities: Non-Tender, Normal Capillary Refill, Redness (noted to have bilateral erythema, likely r/t circulation limitations from obesity/edema), Other (2+ pitting edema of lower extremities bilaterally). No: No Pedal Edema Neurological: Alert, Oriented, Normal Cognition, No Motor/Sensory Deficits Psychiatric: Normal Affect, Normal Mood Skin Exam: Warm, Dry, Intact, Erythema (noted to have bilateral erythema, likely r/t circulation limitations from obesity/edema) #1 Interpretation EKG Date: 08/21/20 Time: 17:06 (read @ 1709) Rhythm: NSR (low voltage precordial leads (likely body habitus related), abnormal R-wave progression/late transition) Rate (Beats/Min): 77 [place]: Normal P-Wave: Present (HI-143) QRS: Normal (QRS-103) ST-T: Normal QT: Normal (QT/QTc-392/444) Course - Vital Signs Text/Narrative:: 1725--labs/rad/ekg have returned except for COVID testing; WBC improved from 06 August (WBC-15.1, neut%-76-->9.7, 65%), creat-1.4 at baseline; trop<0.017 & BNP- 35 both negative. EKG unremarkable for acute concern. Recommend continued duonebulizer use, will give solumedrol/oral steroids for home and recommend PCM/clinic follow up if continued symptoms of concern in the next 2-3 days. d/w patient and spouse at bedside. will d/c once all labs completed Last Recorded V/S: Last Vital Signs Temp 97.4 F 08/21/20 15:24 Pulse 87 08/21/20 15:24 Resp 20 08/21/20 15:24 BP 141/87 H 08/21/20 15:24 Pulse Ox 94 L 08/21/20 15:24 - Orders/Labs/Meds Orders: Active Orders 24 hr Category Date Time Status EKG Documentation Completion [RC] ASDIRECTED Care 08/21/20 16:28 Active Peripheral IV Care [RC] . DIRECTED Care 08/21/20 16:28 Active Pulse Oximetry [RC] CONTINUOUS Care 08/21/20 16:27 Active Chest 1V Frontal [CR] Urgent Exams 08/21/20 16:27 Taken Sodium Chloride 0.9% [Saline Flush] Med 08/21/20 16:27 Active 10 ml FLUSH ASDIRECTED PRN ED Respiratory Adult Reflex [OM.PC] Click to Edit Oth 08/21/20 16:27 Ordered Peripheral IV Insertion Adult [OM.PC] Urgent Oth 08/21/20 16:27 Ordered EKG 12 Lead [EK] Urgent Ther 08/21/20 16:27 Ordered Medication Orders Sodium Chloride (Sodium Chloride 0.9% 10 Ml Syringe) 10 ml FLUSH ASDIRECTED PRN PRN Reason: Keep Vein Open Last Admin: 08/21/20 16:43 Dose: 10 ml Documented by: RONEY Labs: Laboratory Tests 08/21/20 08/21/20 08/21/20 Range/Units 16:40 16:40 16:40 WBC 9.7 (4.5-11.0) K/uL RBC 4.96 (4.30-5.90) M/uL Hgb 15.3 H (12.0-15.0) g/dL Hct 48.7 (40.0-54.0) % MCV 98 (80-98) fL MCH 31 (27-31) pg MCHC 31 L (32-36) % Plt Count 294 (150-400) K/uL Neut % (Auto) 65 (36-66) % Lymph % (Auto) 24 (24-44) % Isabela % (Auto) 9 H (2-6) % Eos % (Auto) 2 (2-4) % Baso % (Auto) 0 (0-1) % PT 11.2 (9.5-12.0) sec INR 1.03 (0.80-1.20) Sodium 141 (140-148) mmol/L Potassium 4.4 (3.6-5.2) mmol/L Chloride 103 (100-108) mmol/L Carbon Dioxide 31 (21-32) mmol/L Anion Gap 6.6 (5.0-14.0) mmol/L BUN 13 D (7-18) mg/dL Creatinine 1.4 H (0.8-1.3) mg/dL Est Cr Clr Drug Dosing 59.62 mL/min Estimated GFR (MDRD) 53 L (>60) Glucose 112 H (74-106) mg/dL Calcium 9.3 (8.5-10.1) mg/dL Magnesium 1.8 (1.8-2.4) mg/dL Total Bilirubin 0.5 (0.2-1.0) mg/dL AST 30 (15-37) U/L ALT 48 (12-78) U/L Alkaline Phosphatase 91 (46-116) U/L Troponin I < 0.017 (0.000-0.056) ng/mL NT-Pro-B Natriuret Pep (5-125) pg/mL Total Protein 6.9 (6.4-8.2) g/dL Albumin 3.5 (3.4-5.0) g/dL Globulin 3.4 (2.3-3.5) g/dL Albumin/Globulin Ratio 1.0 L (1.2-2.2) Influenza Type A RNA (NEGATIVE) RSV RNA (INAAT) (NEGATIVE) Influenza Type B RNA (NEGATIVE) SARS-CoV-2 RNA (BRIJESH) (NEGATIVE) 08/21/20 08/21/20 Range/Units 16:40 17:07 WBC (4.5-11.0) K/uL RBC (4.30-5.90) M/uL Hgb (12.0-15.0) g/dL Hct (40.0-54.0) % MCV (80-98) fL MCH (27-31) pg MCHC (32-36) % Plt Count (150-400) K/uL Neut % (Auto) (36-66) % Lymph % (Auto) (24-44) % Isabela % (Auto) (2-6) % Eos % (Auto) (2-4) % Baso % (Auto) (0-1) % PT (9.5-12.0) sec INR (0.80-1.20) Sodium (140-148) mmol/L Potassium (3.6-5.2) mmol/L Chloride (100-108) mmol/L Carbon Dioxide (21-32) mmol/L Anion Gap (5.0-14.0) mmol/L BUN (7-18) mg/dL Creatinine (0.8-1.3) mg/dL Est Cr Clr Drug Dosing mL/min Estimated GFR (MDRD) (>60) Glucose (74-106) mg/dL Calcium (8.5-10.1) mg/dL Magnesium (1.8-2.4) mg/dL Total Bilirubin (0.2-1.0) mg/dL AST (15-37) U/L ALT (12-78) U/L Alkaline Phosphatase (46-116) U/L Troponin I (0.000-0.056) ng/mL NT-Pro-B Natriuret Pep 35 (5-125) pg/mL Total Protein (6.4-8.2) g/dL Albumin (3.4-5.0) g/dL Globulin (2.3-3.5) g/dL Albumin/Globulin Ratio (1.2-2.2) Influenza Type A RNA Negative (NEGATIVE) RSV RNA (INAAT) Negative (NEGATIVE) Influenza Type B RNA Negative (NEGATIVE) SARS-CoV-2 RNA (BRIJESH) Negative (NEGATIVE) Meds: Medications Generic Name Dose Route Start Last Admin Trade Name Freq PRN Reason Stop Dose Admin Sodium Chloride 10 ml 08/21/20 16:27 08/21/20 16:43 Sodium Chloride 0.9% 10 Ml Syringe FLUSH 10 ml ASDIRECTED PRN Administration Keep Vein Open Discontinued Medications Generic Name Dose Route Start Last Admin Trade Name Freq PRN Reason Stop Dose Admin Albuterol/Ipratropium 3 ml 08/21/20 16:29 08/21/20 16:43 Albuterol/Ipratropium 3.0-0.5 Mg/3 Ml Neb Soln NEB 08/21/20 16:30 3 ml ONETIME ONE Administration - Radiology Interpretation Free Text/Narrative:: 1730--chest film with no acute changes of concern on preliminary reading; final radiology reading pending Departure - Departure Time of Disposition: 17:51 Disposition: Home, Self-Care 01 Condition: Good Clinical Impression: Tobacco use disorder, continuous, Morbid obesity, Hypertension, COPD (chronic obstructive pulmonary disease) with acute bronchitis, Chronic renal insufficiency, stage III (moderate) - Discharge Information *PRESCRIPTION DRUG MONITORING PROGRAM REVIEWED*: Not Applicable *COPY OF PRESCRIPTION DRUG MONITORING REPORT IN PATIENT ODALYS: Not Applicable Instructions: Steps to Quit Smoking, [id number], Coping with Quitting Smoking, Chronic Obstructive Pulmonary Disease, [id number] Referrals: Christiano Vale MD [Primary Care Provider] - Forms: ED Department Discharge Additional Instructions: Smoking cessation is strongly recommended/encouraged Continue to use your duonebulizer every 4-6 hours--use of albuterol inhaler when working (due to driving is acceptable alternative) You have been given a prescription for Prednisone (a steroid)--take every day with food (recommendation is the beginning of your day so as to not interfer with sleep) If you have continued problems or concerns please schedule an appointment with your primary care provider for ER follow up as you now have had 2-ER visits for the same complaint--further testing of your lungs may need to be considered Get your COVID immunization when you are feeling improved as you are at increased risk for COVID infection related complications due to your chronic medical issues Sepsis Event Note (ED) - Evaluation Sepsis Screening Result: No Definite Risk - Focused Exam Vital Signs: Vital Signs Temp Pulse Resp BP Pulse Ox 08/21/20 15:24 97.4 F 87 20 141/87 H 94 L - My Orders Last 24 Hours: My Active Orders 08/21/20 16:27 Pulse Oximetry [RC] CONTINUOUS Chest 1V Frontal [CR] Urgent Sodium Chloride 0.9% [Saline Flush] 10 ml FLUSH ASDIRECTED PRN ED Respiratory Adult Reflex [OM.PC] Click to Edit Peripheral IV Insertion Adult [OM.PC] Urgent EKG 12 Lead [EK] Urgent 08/21/20 16:28 EKG Documentation Completion [RC] ASDIRECTED Peripheral IV Care [RC] . DIRECTED - Assessment/Plan Last 24 Hours: My Active Orders 08/21/20 16:27 Pulse Oximetry [RC] CONTINUOUS Chest 1V Frontal [CR] Urgent Sodium Chloride 0.9% [Saline Flush] 10 ml FLUSH ASDIRECTED PRN ED Respiratory Adult Reflex [OM.PC] Click to Edit Peripheral IV Insertion Adult [OM.PC] Urgent EKG 12 Lead [EK] Urgent 08/21/20 16:28 EKG Documentation Completion [RC] ASDIRECTED Peripheral IV Care [RC] . DIRECTED
[2020-08-21 17:48] LABS: CORONAVIRUS COVID-19 NAA NEGATIVE (NEGATIVE)
--- NOTE | 2020-08-23 09:06 | CR ---
CHEST: Portable 08/21/2020 at 5:03 PM CLINICAL HISTORY:SOB, cough COMPARISON:08/06/2020 FINDINGS: The heart size is borderline enlarged. Pulmonary vascularity and hilar structures are normal. No infiltrate effusion or pneumothorax is seen. There are atherosclerotic changes in the aorta. IMPRESSION: No acute cardiopulmonary process.
== END 2020-08-21 17:56 | disposition home or self-care (01) ==
LOC: JP.ED 15:10
DX: J44.0 Chronic obstructive pulmonary disease with (acute) lower respiratory infection (principal); I12.9 Hypertensive chronic kidney disease with stage 1 through stage 4 chronic kidney disease, or unspecified chronic kidney disease; N18.30 Chronic kidney disease, stage 3 unspecified; E66.01 Morbid (severe) obesity due to excess calories; M19.90 Unspecified osteoarthritis, unspecified site; Z68.42 Body mass index [BMI] 45.0-49.9, adult; Z72.0 Tobacco use; Z88.5 Allergy status to narcotic agent; Z88.2 Allergy status to sulfonamides; Z91.048 Other nonmedicinal substance allergy status; Z79.82 Long term (current) use of aspirin; Z79.899 Other long term (current) drug therapy; Z20.822 Contact with and (suspected) exposure to COVID-19
CPT/HCPCS: 0241U; 36415; 71045; 71045-26; 80053; 83735; 83880; 84484; 85025; 85610; 93005; 99284; 99285-25; J7620-GY

== ENCOUNTER 2020-12-02 11:09 | Emergency (ER) | payer MEDICAID | END 2020-12-02 11:33 | disposition left against medical advice (07) | LOC: JP.ED 11:09 | DX: Z53.21 Procedure and treatment not carried out due to patient leaving prior to being seen by health care provider (principal) ==

== ENCOUNTER 2021-02-15 20:16 | Emergency (ER) | payer MEDICAID ==
[2021-02-15] MEDS ORDERED: Sodium Chloride 0.9% 10 ML Syringe FLUSH PRN (20:41)
[2021-02-15] MEDS ORDERED: Ondansetron 4 MG/2 ML SDV IVPUSH ONE (20:41)
[2021-02-15] MEDS ORDERED: Ketorolac 30 MG/ML SDV IVPUSH ONE (20:41)
[2021-02-15 20:48] VITALS: BP 145/90; PULSE 96
--- NOTE | 2021-02-15 21:20 | EDM.PDOC ---
ED HPI GENERAL MEDICAL PROBLEM - General Chief Complaint: Flank Pain Stated Complaint: PAIN URINATING HX KIDNEY STONES Time Seen by Provider: 02/15/21 21:14 Source of Information: Reports: Patient, Family, RN Notes Reviewed History Limitations: Reports: No Limitations - History of Present Illness INITIAL COMMENTS - FREE TEXT/NARRATIVE: 55-year-old gentleman presents emergency department day complaint of left flank pain, he states he does have a history of kidney stones and feels like kidney stone pain was intense and then relax started on the left flank and now has migrated down more into the pelvis. Did have some nausea and vomiting no shortness of breath beyond baseline, no chest pain - Related Data Allergies Allergy/AdvReac Type Severity Reaction Status Date / Time morphine Allergy Itching Verified 02/15/21 20:55 Sulfa (Sulfonamide Allergy Vomiting Verified 02/15/21 20:55 Antibiotics) surgical tape Allergy Other Uncoded 02/15/21 20:55 Home Meds: Home Meds Albuterol Sulfate [Proair Hfa] 2 puff IH DAILY PRN 06/11/15 [History] Citalopram Hydrobromide [Celexa] 40 mg PO BEDTIME 02/04/19 [History] Terbinafine [LamISIL AT 1% Crm] 1 applic TOP BID 02/04/19 [History] Triamcinolone Acetonide [Kenalog 0.1% Crm] 1 applic TOP ASDIRECTED PRN 02/04/19 [History] busPIRone [Buspar] 10 mg PO DAILY 02/04/19 [History] Acetaminophen [Tylenol] 500 mg PO QID PRN 08/06/20 [History] Albuterol/Ipratropium [DuoNeb 3.0-0.5 MG/3 ML] 3 ml INH QID 08/06/20 [History] Aspirin 81 mg PO DAILY 08/06/20 [History] Naproxen 500 mg PO BID PRN 08/06/20 [History] Budesonide/Formoterol [Symbicort 80-4.5 MCG] 2 puff INH BID 02/15/21 [History] Cholecalciferol (Vitamin D3) [Vitamin D3] 1,000 unit PO BID 02/15/21 [History] Meloxicam [Mobic] 15 mg PO DAILY 02/15/21 [History] Pantoprazole 20 mg PO ACBREAKFAST 02/15/21 [History] Past Medical History HEENT History: Reports: Impaired Vision Respiratory History: Reports: Asthma, COPD, SOB Gastrointestinal History: Reports: Chronic Diarrhea, GERD, GI Bleed, Hemorr hoids, Other (See Below) Other Gastrointestinal History: Crohns disease Genitourinary History: Reports: Renal Calculus, Other (See Below) Other Genitourinary History: erectile dysfunction Musculoskeletal History: Reports: Arthritis, Other (See Below) Other Musculoskeletal History: chronic pain syndrome, knee pain and injuries. 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, according to patient Psychiatric History: Reports: Anxiety, Depression Endocrine/Metabolic History: Reports: Obesity/BMI 30+, Vitamin D Deficiency Dermatologic History: Reports: Cellulitis, Eczema - Infectious Disease History Infectious Disease History: Reports: Extended Spectrum Beta-Lactamase (ESBL), Herpes Other Infectious Disease History: hepatitis a as a child - Past Surgical History Head Surgeries/Procedures: Reports: None HEENT Surgical History: Reports: Adenoidectomy, Oral Surgery, Tonsillectomy, Other (See Below) Other HEENT Surgeries/Procedures: dentures Respiratory Surgical History: Reports: None GI Surgical History: Reports: Appendectomy, Colon, Colonoscopy, EGD, Hernia, Abdominal, Hernia Repair/Other, Small Bowel, Other (See Below) Other GI Surgeries/Procedures: Ileocecal resection,. mesh removal (total of 4 surgeries beginning with an abscess in the mesh). Male Surgical History: Reports: Cystectomy Endocrine Surgical History: Reports: None Neurological Surgical History: Reports: None Musculoskeletal Surgical History: Reports: Shoulder Surgery Dermatological Surgical History: Reports: None Social & Family History - Family History Family Medical History: No Pertinent Family History Respiratory: Reports: Asthma, COPD GI: Reports: None Endocrine/Metabolic: Reports: Diabetes, type II - Tobacco Use Tobacco Use Status *Q: Current Every Day Tobacco User Years of Tobacco use: 40 Packs/Tins Daily: 1 - Caffeine Use Caffeine Use: Reports: Coffee, Soda - Recreational Drug Use Recreational Drug Use: No - Living Situation & Occupation Living situation: Reports: ED ROS GENERAL - Review of Systems Review Of Systems: See Below Constitutional: Reports: No Symptoms HEENT: Reports: No Symptoms Respiratory: Reports: No Symptoms Cardiovascular: Reports: No Symptoms GI/Abdominal: Reports: Abdominal Pain (Left flank), Nausea, Vomiting : Reports: Flank Pain ED EXAM, RENAL/ - Physical Exam Exam: See Below Exam Limited By: No Limitations General Appearance: Alert, WD/WN, No Apparent Distress Respiratory/Chest: No Respiratory Distress, Lungs Clear, Normal Breath Sounds, No Accessory Muscle Use, Chest Non-Tender Cardiovascular: Regular Rate, Rhythm, No Murmur GI/Abdominal: Soft, Non-Tender Course - Vital Signs Last Recorded V/S: Last Vital Signs Temp 97.2 F 02/15/21 20:57 Pulse 96 02/15/21 20:57 Resp 20 02/15/21 20:57 BP 145/90 H 02/15/21 20:57 Pulse Ox 96 02/15/21 20:57 - Orders/Labs/Meds Orders: Active Orders 24 hr Category Date Time Status Peripheral IV Care [RC] . DIRECTED Care 02/15/21 20:41 Active Sodium Chloride 0.9% [Normal Saline] 1,000 ml Med 02/15/21 21:30 Active IV ASDIRECTED Sodium Chloride 0.9% [Saline Flush] Med 02/15/21 20:41 Active 10 ml FLUSH ASDIRECTED PRN Peripheral IV Insertion Adult [OM.PC] Urgent Oth 02/15/21 20:41 Ordered Medication Orders Sodium Chloride (Normal Saline) 1,000 mls @ 500 mls/hr IV ASDIRECTED PATTI Last Admin: 02/15/21 21:27 Dose: 500 mls/hr Documented by: JACKIE Sodium Chloride (Sodium Chloride 0.9% 10 Ml Syringe) 10 ml FLUSH ASDIRECTED PRN PRN Reason: Keep Vein Open Last Admin: 02/15/21 21:27 Dose: 10 ml Documented by: JACKIE Labs: Laboratory Tests 02/15/21 02/15/21 02/15/21 Range/Units 21:11 21:15 21:15 WBC 11.5 H (4.5-11.0) K/uL RBC 4.81 (4.30-5.90) M/uL Hgb 14.5 (12.0-15.0) g/dL Hct 44.3 (40.0-54.0) % MCV 92 (80-98) fL MCH 30 (27-31) pg MCHC 33 (32-36) % Plt Count 219 (150-400) K/uL Neut % (Auto) 90.8 H (36-66) % Lymph % (Auto) 7.1 L (24-44) % Bent % (Auto) 1.4 L (2-6) % Eos % (Auto) 0.6 L (2-4) % Baso % (Auto) 0.1 (0-1) % Sodium 137 L (140-148) mmol/L Potassium 3.7 (3.6-5.2) mmol/L Chloride 101 (100-108) mmol/L Carbon Dioxide 30 (21-32) mmol/L Anion Gap 9.7 (5.0-14.0) mmol/L BUN 11 (7-18) mg/dL Creatinine 1.4 H (0.8-1.3) mg/dL Est Cr Clr Drug Dosing 59.62 mL/min Estimated GFR (MDRD) 53 L (>60) Glucose 123 H (74-106) mg/dL Lactic Acid (0.4-2.0) mmol/L Calcium 8.4 L (8.5-10.1) mg/dL Total Bilirubin 1.1 H D (0.2-1.0) mg/dL AST 24 (15-37) U/L ALT 42 (12-78) U/L Alkaline Phosphatase 70 (46-116) U/L Total Protein 6.4 (6.4-8.2) g/dL Albumin 3.3 L (3.4-5.0) g/dL Globulin 3.1 (2.3-3.5) g/dL Albumin/Globulin Ratio 1.1 L (1.2-2.2) Urine Color Yellow (YELLOW) Urine Appearance Cloudy A (CLEAR) Urine pH 5.5 (5.0-8.0) Ur Specific Lamar 1.025 (1.008-1.030) Urine Protein 30 H (NEGATIVE) mg/dL Urine Glucose (UA) Negative (NEGATIVE) mg/dL Urine Ketones Trace H (NEGATIVE) mg/dL Urine Occult Blood Trace-intact H (NEGATIVE) Urine Nitrite Negative (NEGATIVE) Urine Bilirubin Small H (NEGATIVE) Urine Urobilinogen 0.2 (0.2-1.0) EU/dL Ur Leukocyte Esterase Small H (NEGATIVE) Urine RBC 0-5 (0-5) Urine WBC 20-30 H (0-5) Ur Epithelial Cells Rare Amorphous Sediment Not seen Urine Bacteria Moderate Urine Mucus Not seen Urine Other 02/15/21 Range/Units 21:15 WBC (4.5-11.0) K/uL RBC (4.30-5.90) M/uL Hgb (12.0-15.0) g/dL Hct (40.0-54.0) % MCV (80-98) fL MCH (27-31) pg MCHC (32-36) % Plt Count (150-400) K/uL Neut % (Auto) (36-66) % Lymph % (Auto) (24-44) % Bent % (Auto) (2-6) % Eos % (Auto) (2-4) % Baso % (Auto) (0-1) % Sodium (140-148) mmol/L Potassium (3.6-5.2) mmol/L Chloride (100-108) mmol/L Carbon Dioxide (21-32) mmol/L Anion Gap (5.0-14.0) mmol/L BUN (7-18) mg/dL Creatinine (0.8-1.3) mg/dL Est Cr Clr Drug Dosing mL/min Estimated GFR (MDRD) (>60) Glucose (74-106) mg/dL Lactic Acid 1.6 (0.4-2.0) mmol/L Calcium (8.5-10.1) mg/dL Total Bilirubin (0.2-1.0) mg/dL AST (15-37) U/L ALT (12-78) U/L Alkaline Phosphatase (46-116) U/L Total Protein (6.4-8.2) g/dL Albumin (3.4-5.0) g/dL Globulin (2.3-3.5) g/dL Albumin/Globulin Ratio (1.2-2.2) Urine Color (YELLOW) Urine Appearance (CLEAR) Urine pH (5.0-8.0) Ur Specific Lamar (1.008-1.030) Urine Protein (NEGATIVE) mg/dL Urine Glucose (UA) (NEGATIVE) mg/dL Urine Ketones (NEGATIVE) mg/dL Urine Occult Blood (NEGATIVE) Urine Nitrite (NEGATIVE) Urine Bilirubin (NEGATIVE) Urine Urobilinogen (0.2-1.0) EU/dL Ur Leukocyte Esterase (NEGATIVE) Urine RBC (0-5) Urine WBC (0-5) Ur Epithelial Cells Amorphous Sediment Urine Bacteria Urine Mucus Urine Other Meds: Medications Generic Name Dose Route Start Last Admin Trade Name Tania PRN Reason Stop Dose Admin Sodium Chloride 1,000 mls @ 500 mls/hr 02/15/21 21:30 02/15/21 21:27 Normal Saline IV 500 mls/hr ASDIRECTED PATTI Administration Sodium Chloride 10 ml 02/15/21 20:41 02/15/21 21:27 Sodium Chloride 0.9% 10 Ml Syringe FLUSH 10 ml ASDIRECTED PRN Administration Keep Vein Open Discontinued Medications Generic Name Dose Route Start Last Admin Trade Name Tania PRN Reason Stop Dose Admin Ketorolac Tromethamine 30 mg 02/15/21 20:41 02/15/21 21:27 Ketorolac 30 Mg/Ml Sdv IVPUSH 02/15/21 20:42 30 mg ONETIME ONE Administration Ondansetron HCl 4 mg 02/15/21 20:41 02/15/21 21:28 Ondansetron 4 Mg/2 Ml Sdv IVPUSH 02/15/21 20:42 4 mg ONETIME ONE Administration Departure - Departure Time of Disposition: 22:54 Disposition: Home, Self-Care 01 Condition: Fair Clinical Impression: Abdominal pain Qualifiers: Abdominal location: left lower quadrant Qualified Code(s): R10.32 - Left lower quadrant pain - Discharge Information Instructions: Abdominal Pain, Adult, [id number] Referrals: Angelina Milligan PA-C [Primary Care Provider] - Forms: ED Department Discharge, ED Return to Work/School Form Additional Instructions: Continue to use Toradol as needed for pain control, use Zofran as needed for nausea vomiting symptoms keep your follow-up appointment with your primary care next week call return to the emergency department worsening symptoms Sepsis Event Note (ED) - Evaluation Sepsis Screening Result: No Definite Risk - Focused Exam Vital Signs: Vital Signs Temp Pulse Resp BP Pulse Ox 02/15/21 20:57 97.2 F 96 20 145/90 H 96 02/15/21 20:47 97.2 F 96 20 145/90 H 96 - My Orders Last 24 Hours: My Active Orders 02/15/21 20:41 Peripheral IV Care [RC] . DIRECTED Sodium Chloride 0.9% [Saline Flush] 10 ml FLUSH ASDIRECTED PRN Peripheral IV Insertion Adult [OM.PC] Urgent 02/15/21 21:30 Sodium Chloride 0.9% [Normal Saline] 1,000 ml IV ASDIRECTED - Assessment/Plan Last 24 Hours: My Active Orders 02/15/21 20:41 Peripheral IV Care [RC] . DIRECTED Sodium Chloride 0.9% [Saline Flush] 10 ml FLUSH ASDIRECTED PRN Peripheral IV Insertion Adult [OM.PC] Urgent 02/15/21 21:30 Sodium Chloride 0.9% [Normal Saline] 1,000 ml IV ASDIRECTED Plan: Assessment Acuity = acute Site and laterality = abdominal pain Etiology = unknown Manifestations = none Location of injury = Home Lab values = CBC CMP unremarkable except for creatinine elevated 1.4 consistent chronic renal failure stage G3 a CT scan reveals no acute process Plan I did review lab work CT scan results with him he had good relief with combination Toradol Zofran prescription written for Toradol 10 mg 1 tab p.o. every 6 hours as needed total #20 and Zofran 4 mg ODT 1 tab p.o. 3 times daily as needed total #5 he has a follow-up with his primary care next week This note was dictated using [employer] voice recognition software please call with any questions on syntax or grammar.
[2021-02-15] MEDS ORDERED: Sodium Chloride 0.9% 1,000 ML IV SCH (21:30)
--- NOTE | 2021-02-15 22:38 | CRLCT ---
For Patients: As a result of the Century Cures Act, medical imaging exams and procedure reports are released immediately into your electronic medical record. You may view this report before your referring provider. If you have questions, please contact your health care provider. Indication: Left-sided pain, unable to urinate, history of stones Technique: Nonenhanced axial CT imaging through the abdomen and pelvis. Sagittal and coronal reconstructions are provided. Comparison: CT abdomen pelvis with contrast 12/21/2020 Findings: There is a 5 cm renal cortical cyst arising from the left upper pole, a 7 cm cyst arising in the left interpolar kidney, and a 3 cm cyst arising from the posterior right kidney. These are not significantly changed since prior examination. There is otherwise normal attenuation of the renal parenchyma. There is no hydronephrosis. No stones are seen in the renal collecting systems, ureters, or urinary bladder. A few coarse calcifications in the pelvis are consistent with phleboliths. There is decreased attenuation of the liver parenchyma, consistent with steatosis. Several small hyperdense stones are noted in the otherwise contracted gallbladder. The spleen, pancreas, and adrenal glands demonstrate no significant abnormality. No lymphadenopathy appreciated in the abdomen or pelvis. 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 The stomach is unremarkable. There is a stable 3 cm noninflamed diverticulum arising from the descending portion of the duodenum. The small bowel demonstrates normal caliber. The appendix is noninflamed. There is evidence of prior right hemicolectomy with ileocolic anastomosis. There is no colonic wall thickening or mesenteric edema. Ventral hernia repair changes are noted with diastasis of the rectus abdominus muscles. The osseous structures are unremarkable. The included lung bases are clear. Impression: 1. No nephrolithiasis or urinary obstruction. 2. Cholelithiasis without findings to suggest cholecystitis. 3. Hepatic steatosis. 4. Other stable chronic and postsurgical findings, as above. Please note that all CT scans at this facility use dose modulation, iterative reconstruction, and/or weight-based dosing when appropriate to reduce radiation dose to as low as reasonably achievable. Dictated by Mauricio Eugene MD @ 02/15/2021 10:37:32 PM (Electronically Signed)
== END 2021-02-15 23:09 | disposition home or self-care (01) ==
LOC: JP.ED 20:16
DX: R10.32 Left lower quadrant pain (principal); J44.9 Chronic obstructive pulmonary disease, unspecified; Z88.5 Allergy status to narcotic agent; E66.9 Obesity, unspecified; K21.9 Gastro-esophageal reflux disease without esophagitis; Z88.2 Allergy status to sulfonamides; Z91.048 Other nonmedicinal substance allergy status; Z79.82 Long term (current) use of aspirin; Z68.38 Body mass index [BMI] 38.0-38.9, adult; Z79.899 Other long term (current) drug therapy; Z72.0 Tobacco use
CPT/HCPCS: 36415; 74176; 80053; 81001; 83605; 85025; 96374; 96375; 99284; J1885; J2405; J7030

== ENCOUNTER 2021-04-18 06:22 | Day surgery (SDC) | payer MEDICAID ==
[2021-04-18] MEDS ORDERED: Sodium Chloride 0.9% 1,000 ML IV SCH (07:00)
[2021-04-18] MEDS ORDERED: Propofol 200 MG/20 ML SDV ONE (07:42)
[2021-04-18] MEDS ORDERED: fentaNYL 100 MCG/2 ML SDV ONE (07:42)
[2021-04-18] MEDS ORDERED: Midazolam 1 MG/ML 2 ML SDV ONE (07:42)
[2021-04-18 09:18] VITALS: BP 128/76; PULSE 79
--- NOTE | 2021-04-18 11:03 | OR ---
DATE OF PROCEDURE: 04/18/2021 SURGEON: Bigg Griffiths MD PROCEDURE: Colonoscopy. FINDINGS: 1. Very mild inflammation and a history of Crohn's disease with biopsies of the affected area in transverse colon, descending colon, sigmoid, and rectum. 2. Normal anastomosis between small bowel and the proximal transverse colon. PREOPERATIVE DIAGNOSIS: Crohn disease. POSTOPERATIVE DIAGNOSIS: Crohn disease. RISKS: Risks, benefits, alternatives, and limitations including, but not limited to infection, bleeding, perforation, false positives, false negatives were explained to the patient and wished to proceed. PROCEDURE IN DETAIL: The patient was placed in left lateral decubitus position. Digital rectal examination was performed without abnormality. Scope was introduced and advanced atraumatically to anastomosis between small and large bowel, which was approximately in the transverse colon. The scope was brought back through the remainder of the colon. Random biopsies performed of the aforementioned area due to the inflammation and history of Crohn's disease. No abnormalities on retroflexion. The prep was poor with less than 60% luminal surface could be seen with large amount of solid and liquid stool remaining. Greater than 8 minutes was spent removing the scope. The patient will be counseled on repeat colonoscopy. Bigg Griffiths MD /[id number]
== END 2021-04-18 09:19 | disposition home or self-care (01) ==
LOC: JP.SDS 06:22
PROVIDERS: ATTEND Surgery
DX: K50.90 Crohn's disease, unspecified, without complications (principal); J44.9 Chronic obstructive pulmonary disease, unspecified; F17.200 Nicotine dependence, unspecified, uncomplicated; I10 Essential (primary) hypertension; E66.01 Morbid (severe) obesity due to excess calories; Z68.42 Body mass index [BMI] 45.0-49.9, adult
CPT/HCPCS: 45380; 88305; J2250; J2704; J3010; J7030

== ENCOUNTER 2021-09-24 11:01 | Inpatient (IN) | payer MEDICAID ==
[2021-09-24] MEDS ORDERED: Sodium Chloride 0.9% 10 ML Syringe FLUSH PRN ×3 (11:14→14:09)
[2021-09-24] MEDS ORDERED: Albuterol/Ipratropium 3.0-0.5 MG/3 ML Neb Soln NEB ONE (11:15)
[2021-09-24] MEDS ORDERED: methylPREDNISolone Sodium Succinate 125 MG/2 ML SDV IVPUSH ONE (11:16)
[2021-09-24 11:50] LABS: CORONAVIRUS COVID-19 NAA NEGATIVE (NEGATIVE)
[2021-09-24 11:58] LABS: TROPONIN I HIGH SENSITIVITY 17.4 pg/mL (<=60.3)
[2021-09-24] MEDS ORDERED: Sodium Chloride 0.9% 1,000 ML IV SCH (12:45)
[2021-09-24] MEDS: cefTRIAXone 1 GM in Sodium Chloride 0.9% 50 ML IV SCH (13:33)
[2021-09-24] MEDS ORDERED: Ondansetron 4 MG/2 ML SDV IV PRN (14:09)
[2021-09-24] MEDS: Doxycycline 100 MG in Sodium Chloride 0.9% 100 ML IV SCH (14:23)
[2021-09-24] MEDS: Albuterol/Ipratropium 3.0-0.5 MG/3 ML Neb Soln INH SCH ×2 (14:38→21:11)
[2021-09-24] MEDS: Enoxaparin 40 MG/0.4 ML Syringe SUBCUT SCH (16:02)
[2021-09-24] MEDS: methylPREDNISolone Sodium Succinate 40 MG/1 ML SDV IVPUSH SCH (16:03)
[2021-09-24] MEDS: Sodium Chloride 0.9% 1,000 ML IV SCH (17:16)
[2021-09-24] MEDS: Albuterol 0.083% 2.5 MG/3 ML Neb Soln NEB PRN (19:38)
[2021-09-24] MEDS: Citalopram 20 MG Tab PO SCH (21:10)
[2021-09-24] MEDS: Formoterol/Mometasone 100-5 MCG 8.8 GM Inhaler SCH (21:10)
[2021-09-25] MEDS: Sodium Chloride 0.9% 1,000 ML IV SCH (01:07)
[2021-09-25] MEDS: methylPREDNISolone Sodium Succinate 40 MG/1 ML SDV IVPUSH SCH ×4 (01:09→23:35)
[2021-09-25] MEDS: Doxycycline 100 MG in Sodium Chloride 0.9% 100 ML IV SCH ×2 (02:25→14:47)
[2021-09-25] MEDS: Albuterol/Ipratropium 3.0-0.5 MG/3 ML Neb Soln INH SCH ×4 (07:25→20:58)
[2021-09-25] MEDS: Pantoprazole 40 MG Tab.CR PO SCH (07:29)
[2021-09-25] MEDS: Formoterol/Mometasone 100-5 MCG 8.8 GM Inhaler SCH ×2 (08:18→20:58)
[2021-09-25] MEDS: Enoxaparin 40 MG/0.4 ML Syringe SUBCUT SCH (08:44)
[2021-09-25] MEDS: busPIRone 10 MG Tab PO SCH (08:44)
[2021-09-25] MEDS: Aspirin 81 MG Tab.Chew PO SCH (08:44)
[2021-09-25] MEDS ORDERED: Nicotine Polacrilex 2 MG Gum CHEW PRN (12:22)
[2021-09-25] MEDS: cefTRIAXone 1 GM in Sodium Chloride 0.9% 50 ML IV SCH (13:00)
[2021-09-25] MEDS: Citalopram 20 MG Tab PO SCH (20:58)
[2021-09-25] MEDS ORDERED: Oxymetazoline 0.05% Nasal Spray 30 ML Bottle NAS PRN (23:05)
[2021-09-25] MEDS: Acetaminophen 325 MG Tab PO PRN (23:31)
[2021-09-25] MEDS: diphenhydrAMINE 25 MG Cap PO PRN (23:31)
[2021-09-26] MEDS ORDERED: Sodium Chloride 0.9% 500 ML IV ONE (00:15)
[2021-09-26] MEDS: Doxycycline 100 MG in Sodium Chloride 0.9% 100 ML IV SCH ×2 (01:54→14:29)
[2021-09-26] MEDS ORDERED: Metoprolol Tartrate 25 MG Tab PO ONE ×2 (02:42→23:21)
[2021-09-26] MEDS: Albuterol 0.083% 2.5 MG/3 ML Neb Soln NEB PRN (02:42)
[2021-09-26] MEDS: Albuterol/Ipratropium 3.0-0.5 MG/3 ML Neb Soln INH SCH ×4 (06:07→20:23)
[2021-09-26] MEDS: methylPREDNISolone Sodium Succinate 40 MG/1 ML SDV IVPUSH SCH ×3 (07:39→23:18)
[2021-09-26] MEDS: Pantoprazole 40 MG Tab.CR PO SCH (07:42)
[2021-09-26] MEDS: Formoterol/Mometasone 100-5 MCG 8.8 GM Inhaler SCH ×2 (08:44→20:34)
[2021-09-26] MEDS: Aspirin 81 MG Tab.Chew PO SCH (09:09)
[2021-09-26] MEDS: busPIRone 10 MG Tab PO SCH (09:09)
[2021-09-26] MEDS: Enoxaparin 40 MG/0.4 ML Syringe SUBCUT SCH (09:09)
[2021-09-26] MEDS: Fluticasone NASAL Spray 16 GM Bottle NASBOTH SCH ×2 (11:39→20:36)
[2021-09-26] MEDS: cefTRIAXone 1 GM in Sodium Chloride 0.9% 50 ML IV SCH (13:15)
[2021-09-26] MEDS ORDERED: guaiFENesin 600 MG Tab.ER PO ONE (14:15)
[2021-09-26] MEDS: Acetaminophen 325 MG Tab PO PRN (15:02)
[2021-09-26] MEDS: guaiFENesin 600 MG Tab.ER PO SCH (20:33)
[2021-09-26] MEDS: Citalopram 20 MG Tab PO SCH (20:33)
[2021-09-26] MEDS: diphenhydrAMINE 25 MG Cap PO PRN (22:26)
[2021-09-27] MEDS: Doxycycline 100 MG in Sodium Chloride 0.9% 100 ML IV SCH (02:01)
[2021-09-27] MEDS: Albuterol/Ipratropium 3.0-0.5 MG/3 ML Neb Soln INH SCH ×4 (07:04→21:20)
[2021-09-27] MEDS: Formoterol/Mometasone 100-5 MCG 8.8 GM Inhaler SCH ×2 (08:03→21:22)
[2021-09-27] MEDS: predniSONE 20 MG Tab PO SCH (08:25)
[2021-09-27] MEDS: busPIRone 10 MG Tab PO SCH (08:25)
[2021-09-27] MEDS: Pantoprazole 40 MG Tab.CR PO SCH (08:25)
[2021-09-27] MEDS: Aspirin 81 MG Tab.Chew PO SCH (08:25)
[2021-09-27] MEDS: Fluticasone NASAL Spray 16 GM Bottle NASBOTH SCH ×2 (08:25→21:23)
[2021-09-27] MEDS: Enoxaparin 40 MG/0.4 ML Syringe SUBCUT SCH (08:26)
[2021-09-27] MEDS: Doxycycline 100 MG Cap PO SCH ×2 (11:04→22:10)
[2021-09-27] MEDS: guaiFENesin 600 MG Tab.ER PO SCH ×2 (11:04→21:22)
[2021-09-27] MEDS: cefTRIAXone 1 GM in Sodium Chloride 0.9% 50 ML IV SCH (13:36)
[2021-09-27] MEDS: Citalopram 20 MG Tab PO SCH (21:22)
[2021-09-27] MEDS: diphenhydrAMINE 25 MG Cap PO PRN (23:00)
[2021-09-28] MEDS ORDERED: Metoprolol Tartrate 25 MG Tab PO ONE (00:46)
[2021-09-28] MEDS: Albuterol 0.083% 2.5 MG/3 ML Neb Soln NEB PRN (04:27)
[2021-09-28] MEDS: Acetaminophen 325 MG Tab PO PRN (04:33)
[2021-09-28] MEDS: Albuterol/Ipratropium 3.0-0.5 MG/3 ML Neb Soln INH SCH ×4 (07:22→20:38)
[2021-09-28] MEDS: predniSONE 20 MG Tab PO SCH (07:47)
[2021-09-28] MEDS: Pantoprazole 40 MG Tab.CR PO SCH (07:47)
[2021-09-28] MEDS: Formoterol/Mometasone 100-5 MCG 8.8 GM Inhaler SCH ×2 (08:14→20:42)
[2021-09-28] MEDS: Enoxaparin 40 MG/0.4 ML Syringe SUBCUT SCH (08:47)
[2021-09-28] MEDS: busPIRone 10 MG Tab PO SCH (08:47)
[2021-09-28] MEDS: Aspirin 81 MG Tab.Chew PO SCH (08:48)
[2021-09-28] MEDS: guaiFENesin 600 MG Tab.ER PO SCH ×2 (08:48→20:41)
[2021-09-28] MEDS: Fluticasone NASAL Spray 16 GM Bottle NASBOTH SCH ×2 (08:48→20:42)
[2021-09-28] MEDS ORDERED: Metoprolol Tartrate 25 MG Tab PO PRN (10:19)
[2021-09-28] MEDS ORDERED: Furosemide 40 MG/4 ML VIAL IVPUSH ONE (11:00)
[2021-09-28] MEDS: Doxycycline 100 MG Cap PO SCH ×2 (11:12→22:35)
[2021-09-28] MEDS ORDERED: Furosemide 20 MG Tab PO ONE (14:00)
[2021-09-28] MEDS: Cefdinir 300 MG Cap PO SCH (20:41)
[2021-09-28] MEDS: Citalopram 20 MG Tab PO SCH (20:41)
[2021-09-29] MEDS: Albuterol/Ipratropium 3.0-0.5 MG/3 ML Neb Soln INH SCH (07:01)
[2021-09-29] MEDS: Enoxaparin 40 MG/0.4 ML Syringe SUBCUT SCH (08:00)
[2021-09-29] MEDS: Fluticasone NASAL Spray 16 GM Bottle NASBOTH SCH (08:00)
[2021-09-29] MEDS: Pantoprazole 40 MG Tab.CR PO SCH (08:01)
[2021-09-29] MEDS: guaiFENesin 600 MG Tab.ER PO SCH (08:01)
[2021-09-29] MEDS: Formoterol/Mometasone 100-5 MCG 8.8 GM Inhaler SCH (08:01)
[2021-09-29] MEDS: busPIRone 10 MG Tab PO SCH (08:01)
[2021-09-29] MEDS: Aspirin 81 MG Tab.Chew PO SCH (08:01)
[2021-09-29] MEDS: Cefdinir 300 MG Cap PO SCH (08:01)
[2021-09-29 08:03] VITALS: BP 119/79; PULSE 94
== END 2021-09-29 10:31 | disposition home or self-care (01) | DRG 189 ==
LOC: JP.ED 11:01 → JP.MS 13:08
PROVIDERS: ADMIT Hospitalist; ATTEND Internal Medicine
DX: J96.01 Acute respiratory failure with hypoxia (principal); J44.0 Chronic obstructive pulmonary disease with (acute) lower respiratory infection; J44.1 Chronic obstructive pulmonary disease with (acute) exacerbation; K50.90 Crohn's disease, unspecified, without complications; Z68.42 Body mass index [BMI] 45.0-49.9, adult; J20.9 Acute bronchitis, unspecified; E66.01 Morbid (severe) obesity due to excess calories; K21.9 Gastro-esophageal reflux disease without esophagitis; G89.4 Chronic pain syndrome; F41.9 Anxiety disorder, unspecified; F32.A Depression, unspecified; E55.9 Vitamin D deficiency, unspecified; G47.30 Sleep apnea, unspecified; Z20.822 Contact with and (suspected) exposure to COVID-19; M19.90 Unspecified osteoarthritis, unspecified site; Z87.891 Personal history of nicotine dependence; Z79.82 Long term (current) use of aspirin; Z79.899 Other long term (current) drug therapy; Z88.5 Allergy status to narcotic agent; Z88.2 Allergy status to sulfonamides; Z86.19 Personal history of other infectious and parasitic diseases; Z90.49 Acquired absence of other specified parts of digestive tract
CPT/HCPCS: 0241U; 36415; 36600; 71045; 71045-26; 80048; 80053; 82803; 83605; 84145; 84484; 85025; 87040; 93005; 94640; 94667; 94668; 96365; 96375; 99284; 99285-25; A9270-GY; J0696; J1650; J1940; J2920; J2930; J3490; J7030; J7040; J7512; J7620

== ENCOUNTER 2022-05-15 07:49 | Day surgery (SDC) | payer MEDICAID ==
[~2022-05-15 07:49] MED LIST: Midazolam 1 MG/ML 2 ML SDV ONE; Propofol 200 MG/20 ML SDV ONE; fentaNYL 50 MCG/ML SDV ONE
[2022-05-15] MEDS ORDERED: Albuterol/Ipratropium 3.0-0.5 MG/3 ML Neb Soln NEB ONE (08:00)
[2022-05-15] MEDS ORDERED: Dextrose 5%-Lactated Ringers 1,000 ML IV SCH (08:00)
[2022-05-15] MEDS ORDERED: Propofol 200 MG/20 ML SDV ONE (09:32)
[2022-05-15 11:04] VITALS: BP 122/71; PULSE 76
== END 2022-05-15 11:15 | disposition home or self-care (01) ==
LOC: JP.SDS 07:49
PROVIDERS: ATTEND Surgery
DX: K62.5 Hemorrhage of anus and rectum (principal); I10 Essential (primary) hypertension; G47.33 Obstructive sleep apnea (adult) (pediatric); J44.9 Chronic obstructive pulmonary disease, unspecified; F32.A Depression, unspecified; F17.200 Nicotine dependence, unspecified, uncomplicated; K64.8 Other hemorrhoids; Z87.19 Personal history of other diseases of the digestive system; Z79.899 Other long term (current) drug therapy; Z88.2 Allergy status to sulfonamides; Z88.6 Allergy status to analgesic agent; Z88.8 Allergy status to other drugs, medicaments and biological substances
CPT/HCPCS: 45378; 94640; J2250; J2704; J3010; J7121; J7620

== ENCOUNTER 2022-10-26 06:35 | Day surgery (SDC) | payer MEDICAID ==
[2022-10-26] MEDS ORDERED: Bupivacaine 0.5%/EPINEPHrine 1:200,000 50 ML MDV ONE (06:37)
[2022-10-26] MEDS ORDERED: Succinylcholine 200 MG/10 ML MDV ONE (07:50)
[2022-10-26] MEDS ORDERED: Glycopyrrolate 0.2 MG/ML 5 ML MDV ONE (07:50)
[2022-10-26] MEDS ORDERED: Dexamethasone 4 MG/ML SDV ONE (07:50)
[2022-10-26] MEDS ORDERED: Propofol 200 MG/20 ML SDV ONE (07:50)
[2022-10-26] MEDS ORDERED: Rocuronium 50 MG/5 ML Vial ONE (07:50)
[2022-10-26] MEDS ORDERED: Neostigmine Methylsulfate 1 MG/ML 5 ML Syringe ONE (07:50)
[2022-10-26] MEDS ORDERED: Ondansetron 4 MG/2 ML SDV ONE (07:50)
[2022-10-26] MEDS ORDERED: fentaNYL 250 MCG/5 ML SDV ONE (07:52)
[2022-10-26 09:10] LABS: A/G RATIO 0.9 (1.2-2.2); ALANINE AMINOTRANSFERASE,ALT 51 U/L (12-78); ALBUMIN 3.5 g/dL (3.4-5.0); ALKALINE PHOSPHATASE 86 U/L (46-116); ANION GAP 8.1 mmol/L (5.0-14.0); ASPARTATE AMNIOTRANSFERASE,AST 34 U/L (15-37); BILIRUBIN TOTAL 0.7 mg/dL (0.2-1.0); BLOOD UREA NITROGEN,BUN 7 mg/dL (7-18); CALCIUM 8.5 mg/dL (8.5-10.1); CARBON DIOXIDE,CO2 29 mmol/L (21-32); CHLORIDE,CL 103 mmol/L (100-108); CREATININE 1.2 mg/dL (0.8-1.3); ESTIMATED GFR 71 mL/min (>60); GLUCOSE RANDOM 100 mg/dL (74-106); MAGNESIUM 1.8 mg/dL (1.8-2.4); PHOSPHORUS 2.9 mg/dL (2.5-4.9); POTASSIUM,K 4.1 mmol/L (3.6-5.2); PROTEIN TOTAL,TP 7.4 g/dL (6.4-8.2); SODIUM,NA 140 mmol/L (140-148)
[2022-10-26] MEDS ORDERED: Albuterol/Ipratropium 3.0-0.5 MG/3 ML Neb Soln NEB ONE (09:30)
[2022-10-26] MEDS ORDERED: Meropenem 500 MG SDV ONE (09:31)
[2022-10-26] MEDS: Dextrose 5%-Lactated Ringers 1,000 ML IV SCH (09:48)
[2022-10-26] MEDS ORDERED: Meropenem 500 MG in Sodium Chloride 0.9% 50 ML IV ONE (10:15)
[2022-10-26] MEDS ORDERED: fentaNYL 100 MCG/2 ML SDV ONE (10:54)
[2022-10-26] MEDS ORDERED: Cyclobenzaprine 10 MG Tab PO PRN (13:45)
[2022-10-26] MEDS ORDERED: Metoclopramide 10 MG/2 ML SDV IVPUSH PRN (14:00)
[2022-10-26] MEDS ORDERED: traMADol 50 MG Tab PO PRN (14:00)
[2022-10-26] MEDS ORDERED: hydrOXYzine HCl 50 MG/ML SDV IM PRN (14:00)
[2022-10-26] MEDS ORDERED: HYDROmorphone 1 MG/ML Syringe IV PRN (14:00)
[2022-10-26] MEDS ORDERED: Ondansetron 4 MG/2 ML SDV IVPUSH PRN (14:00)
[2022-10-26] MEDS ORDERED: HYDROmorphone 0.5 MG/0.5 ML Syringe IVPUSH PRN (14:00)
[2022-10-26] MEDS ORDERED: Labetalol 20 MG/4 ML Syringe IVPUSH PRN (14:00)
[2022-10-26] MEDS ORDERED: Acetaminophen 500 MG Tab PO PRN (14:00)
[2022-10-26] MEDS ORDERED: diphenhydrAMINE 50 MG/ML SDV IVPUSH PRN (14:00)
[2022-10-26] MEDS: Lidocaine 4% 1 each Patch TOP SCH (14:40)
[2022-10-26] MEDS: Acetaminophen 500 MG Tab PO SCH ×2 (14:41→21:09)
[2022-10-26] MEDS: Albuterol/Ipratropium 3.0-0.5 MG/3 ML Neb Soln INH SCH ×2 (14:53→21:07)
[2022-10-26] MEDS ORDERED: MVI, Adult with Vitamin K 10 ML, Thiamine 200 MG, Zinc/Copper/Manganese/Selenium 1 ML i... IV SCH ×4 (16:00)
[2022-10-26] MEDS ORDERED: Pantoprazole 40 MG Vial IVPUSH SCH (16:00)
[2022-10-26] MEDS: Meropenem 500 MG in Sodium Chloride 0.9% 50 ML IV SCH ×2 (16:10→21:09)
[2022-10-26] MEDS: Heparin Sodium 5,000 Units/ML Vial SUBCUT SCH (19:42)
[2022-10-26] MEDS ORDERED: Citalopram 20 MG Tab PO SCH (21:00)
[2022-10-26] MEDS: Formoterol/Mometasone 100-5 MCG 8.8 GM Inhaler IH SCH (21:08)
[2022-10-26] MEDS: busPIRone 10 MG Tab PO SCH (21:09)
[2022-10-26] MEDS: oxyCODONE 5 MG Tab PO PRN (21:33)
[2022-10-27] MEDS ORDERED: Benzocaine/Cetylpyridinium/Menthol Lozenge MUCMEM PRN (00:13)
[2022-10-27] MEDS: Dextrose 5%-Lactated Ringers 1,000 ML IV SCH (03:25)
[2022-10-27] MEDS: Meropenem 500 MG in Sodium Chloride 0.9% 50 ML IV SCH (04:04)
[2022-10-27] MEDS: Acetaminophen 500 MG Tab PO SCH (05:15)
[2022-10-27] MEDS: Formoterol/Mometasone 100-5 MCG 8.8 GM Inhaler IH SCH (07:09)
[2022-10-27] MEDS: Albuterol/Ipratropium 3.0-0.5 MG/3 ML Neb Soln INH SCH (07:09)
[2022-10-27] MEDS: oxyCODONE 5 MG Tab PO PRN (07:23)
[2022-10-27 07:28] VITALS: BP 146/80; PULSE 78
[2022-10-27] MEDS: Heparin Sodium 5,000 Units/ML Vial SUBCUT SCH (07:29)
[2022-10-27] MEDS: Lidocaine 4% 1 each Patch TOP SCH (08:37)
[2022-10-27] MEDS: busPIRone 10 MG Tab PO SCH (08:38)
[2022-10-27] MEDS ORDERED: Celecoxib 200 MG Cap PO SCH (09:00)
[2022-10-27] MEDS ORDERED: SCOPOLAMINE PATCH CHECK TOP SCH (09:00)
[2022-10-27] MEDS ORDERED: rOPINIRole 1 MG Tab PO SCH (09:00)
[2022-10-28] MEDS ORDERED: Cyanocobalamin (Vitamin B12) 1,000 MCG/ML SDV IM ONE (09:00)
== END 2022-10-27 10:39 | disposition home or self-care (01) ==
LOC: JP.SDS 06:35 → JP.MS 12:15 → JP.SDS 10-27 10:39
PROVIDERS: ATTEND Surgery
DX: K60.1 Chronic anal fissure (principal); E87.6 Hypokalemia; J45.909 Unspecified asthma, uncomplicated; M25.562 Pain in left knee; M25.511 Pain in right shoulder; G89.4 Chronic pain syndrome; I10 Essential (primary) hypertension; G47.00 Insomnia, unspecified; F41.9 Anxiety disorder, unspecified; K50.90 Crohn's disease, unspecified, without complications; E66.01 Morbid (severe) obesity due to excess calories; Z79.82 Long term (current) use of aspirin; Z98.890 Other specified postprocedural states; Z87.891 Personal history of nicotine dependence; Z88.5 Allergy status to narcotic agent; Z88.2 Allergy status to sulfonamides; Z91.048 Other nonmedicinal substance allergy status
CPT/HCPCS: 36415; 46200; 80053; 83735; 83880; 84100; 94640; A9270; C9113; J0330; J1100; J1644; J2185; J2405; J2704; J2710; J3010; J3411; J3490; J7121; 88304; J2020; J7620